=== PATIENT | female | born 1960 | race American Indian/Alaskan Native ===

== ENCOUNTER 2017-01-07 10:35 | Emergency (ER) | payer MEDICARE, OTHER ==
[2017-01-07 10:41] VITALS: BP 118/83; PULSE 62; TEMP 98; O2SAT 99; BMI 35.3
--- NOTE | 2017-01-07 11:57 | ED PDOC ---
HPI: Abdomen Time Seen by Provider: 01/07/17 11:01 Chief Complaint (Nursing): GI Problem Chief Complaint (Provider): GI Problem History Per: Patient History/Exam Limitations: no limitations Onset/Duration Of Symptoms: Days (x1) Current Symptoms Are (Timing): Still Present Additional Complaint(s): Giovana Michel is a 56 year old female with a past medical history of proctitis presenting to the ED for an evaluation of a 1 day history of abdominal pain associated with vomiting and diarrhea starting last night. The patient reports constant, mild cramping and discomfort in her abdomen and multiple episodes of watery, mucus diarrhea with a small amount of blood present starting last night. She vomited two times this morning. She also reports her mother, whom she lives with, is sick with vomiting and diarrhea. The patient denies fever, headache, back pain, or urinary problems. 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 PMD: Non [facility] Provider Past Medical History Reviewed: Historical Data, Nursing Documentation, Vital Signs Vital Signs: Last Vital Signs Temp 98 F 01/07/17 10:40 Pulse 62 01/07/17 10:40 Resp BP 118/83 01/07/17 10:40 Pulse Ox 99 01/07/17 16:40 - Medical History PMH: Anemia, Anxiety, Arthritis, Asthma, Bipolar Disorder, COPD, Depression, Diabetes, Hypercholesterolemia, Hypothyroidism, Osteoporosis, Rheumatoid Arthritis, Seizures Denies: Chronic Kidney Disease Other PMH: proctitis - Family History Family History: States: Unknown Family Hx - Social History Current smoker - smoking cessation education provided: No Ex-Smoker (has not smoked in the last 12 months): No Alcohol: None Drugs: Denies - Immunization History Hx Tetanus Toxoid Vaccination: Yes (November 2014) Hx Influenza Vaccination: Yes Hx Pneumococcal Vaccination: Yes - Home Medications Home Medications: Ambulatory Orders Medication Instructions Recorded Clonazepam. 0.5 mg PO DAILY 01/14/13 Lamotrigine [Lamictal] 100 mg PO BID #10 tab 01/14/13 Lamotrigine. 100 mg PO BID 01/14/13 Levothyroxine. 75 mg PO DAILY 01/14/13 Lexapro. 20 mg PO DAILY 01/14/13 Metformin. 500 mg PO DAILY 01/14/13 Cyclobenzaprine HCl [Flexeril] 1 tab PO TID PRN #15 tab 06/05/14 Ibuprofen [Motrin] 600 mg PO Q6 #20 tab 01/07/17 Ondansetron ODT [Zofran ODT] 4 mg PO Q8 PRN #12 odt 01/07/17 - Allergies Allergies/Adverse Reactions: Allergies Allergy/AdvReac Type Severity Reaction Status Date / Time No Known Allergies Allergy Verified 10/27/14 18:40 Review of Systems ROS Statement: Except As Marked, All Systems Reviewed And Found Negative Constitutional: Negative for: Fever Gastrointestinal: Positive for: Vomiting, Abdominal Pain, Diarrhea Musculoskeletal: Negative for: Back Pain Neurological: Negative for: Headache Physical Exam - Reviewed Nursing Documentation Reviewed: Yes Vital Signs Reviewed: Yes - Physical Exam Appears: Positive for: Well, Non-toxic, No Acute Distress Head Exam: Positive for: ATRAUMATIC, NORMAL INSPECTION, NORMOCEPHALIC Skin: Positive for: Normal Color, Warm, Dry Eye Exam: Positive for: EOMI, Normal appearance, PERRL ENT: Positive for: Normal ENT Inspection Neck: Positive for: Normal, Painless ROM, Supple Cardiovascular/Chest: Positive for: Regular Rate, Rhythm, Chest Non Tender Respiratory: Positive for: Normal Breath Sounds. Negative for: Respiratory Distress Gastrointestinal/Abdominal: Positive for: Normal Exam, Bowel Sounds, Soft, Tenderness (in peripubical area and mild RLQ tenderness ) Back: Positive for: Normal Inspection Extremity: Positive for: Normal ROM. Negative for: Pedal Edema, Deformity Neurologic/Psych: Positive for: Alert, Oriented (x3). Negative for: Motor/ Sensory Deficits - Laboratory Results Result Diagrams: 01/07/17 12:05 01/07/17 12:05 - ECG O2 Sat by Pulse Oximetry: 99 (RA) Pulse Ox Interpretation: Normal - Progress Re-evaluation Time: 16:30 Condition: Re-examined, Improved Medical Decision Making Medical Decision Making: Time: 11:01 Impression: Abdominal pain Differential diagnosis includes but is not limited to colitis, gastroenteritis. Rule out acute appendicitis and diverticulitis Plan: * CT Abd & Pelvis IV Contrast Only * Amylase * COMP Metabolic Panel * Lipase * CBC (With differential) * Bentyl 10 mg PO * Zofran 4 mg IVP * Reevaluation CT Abd & Pelvis IV Contrast: FINDINGS: LOWER THORAX: Bilateral basilar dependent atelectasis identified minimally. LIVER: Unremarkable. No gross lesion or ductal dilatation. GALLBLADDER AND BILE DUCTS: Unremarkable. PANCREAS: Unremarkable. No gross lesion or ductal dilatation. SPLEEN: Unremarkable. ADRENALS: Unremarkable. No mass. KIDNEYS AND URETERS: Unremarkable. No hydronephrosis. No solid mass. VASCULATURE: Unremarkable. No aortic aneurysm. BOWEL: Rare colonic diverticular are appreciated at the sigmoid colon as well as right hemicolon which are nonacute. No obstruction. No gross mural thickening. APPENDIX: Normal appendix. PERITONEUM: Unremarkable. No free fluid. No free air. LYMPH NODES: Unremarkable. No enlarged lymph nodes. BLADDER: Unremarkable. REPRODUCTIVE: fA 1.3 cm nodular density is seen exophytic off the upper right uterine fundus suggestive of small fibroid. The adnexal compartments and uterus are otherwise unremarkable appearing. BONES: No acute . OTHER FINDINGS: None. IMPRESSION: Rare colonic diverticular, nonacute. Possible 1.3 cm round right uterine fundal fibroid. The remainder the examination appears unremarkable. No definite acute abdominal or pelvic findings. Scribe Attestation: Documented by Tiffany Conde, acting as a scribe for Sandy Bautista MD. Provider Scribe Attestation: All medical record entries made by the Scribe were at my direction and personally dictated by me. I have reviewed the chart and agree that the record accurately reflects my personal performance of the history, physical exam, medical decision making, and the department course for this patient. I have also personally directed, reviewed, and agree with the discharge instructions and disposition. Disposition - Clinical Impression Clinical Impression: Colitis, Gastroenteritis - Patient ED Disposition Is Patient to be Admitted: No Doctor Will See Patient In The: Office Counseled Patient/Family Regarding: Studies Performed, Diagnosis, Need For Followup - Disposition Referrals: [facility] [Outside] Taty GRAYSON,MD Lashay [Medical Doctor] - Disposition: Routine/Home Disposition Time: 16:38 Condition: GOOD Additional Instructions: Take your medications as instructed. Follow up with your PCP in 2-3 days. Prescriptions: Ibuprofen [Motrin] 600 mg PO Q6 #20 tab Ondansetron ODT [Zofran ODT] 4 mg PO Q8 PRN #12 odt PRN Reason: Nausea/Vomiting Instructions: Colitis (ED)
[2017-01-07 12:24] LABS: BASO # 0.1 K/uL (0.0-0.2); BASO % 2.6 % (0.0-2.0); EOS # 0.1 K/uL (0.0-0.7); EOS % 1.4 % (0.0-4.0); HEMATOCRIT 35.4 % (34.0-47.0); LYMPH # 1.6 K/uL (1.0-4.3); LYMPH % 35.7 % (20.0-40.0); MEAN CELL VOLUME 61.2 fl (81.0-99.0); MEAN CORPUSCULAR HEMOGLOBIN 19.6 pg (27.0-31.0); MEAN PLATELET VOLUME 8.6 fl (7.2-11.7); MONO # 0.5 K/uL (0.0-0.8); MONO % 10.5 % (0.0-10.0); NEUT # 2.2 K/uL (1.8-7.0); NEUT % 49.8 % (50.0-75.0); NRBC % 0.1 % (0.0-0.0); RED CELL DISTRIBUTION WIDTH 18.2 % (11.5-14.5); WHITE BLOOD COUNT 4.4 K/uL (4.8-10.8)
[2017-01-07 12:25] LABS: ALB/GLOB RATIO 1.1 (1.0-2.1); ALKALINE PHOSPHATASE 191 U/L (38-126); ALT/SGPT 8 U/L (9-52); AMYLASE 127 U/L (30-110); AST/SGOT 51 U/L (14-36); BILIRUBIN,TOTAL 0.8 mg/dl (0.2-1.3); BLOOD UREA NITROGEN 7 mg/dl (7-17); CALCIUM 10.5 mg/dL (8.4-10.2); CARBON DIOXIDE 24 mmol/L (22-30); CHLORIDE 85 mmol/L (98-107); GFR AFRICAN-AMERICAN > 60; GLUCOSE,RANDOM 96 mg/dL (65-105); LIPASE 114 U/L (23-300); SODIUM 121 mmol/l (132-148)
[2017-01-07 12:30] LABS: POTASSIUM 5.4 MMOL/L (3.6-5.0)
[2017-01-07] MEDS ORDERED: Sodium Chloride 0.9% 50 ML IV ONE (14:38)
[2017-01-07] MEDS ORDERED: Iohexol 300 100 ML IJ ONE (14:38)
--- NOTE | 2017-01-07 16:21 | CT ---
PROCEDURE: CT Abdomen and Pelvis with contrast HISTORY: abdominal pain v/d COMPARISON: None. TECHNIQUE: Contrast dose: Omnipaque 300, 95 cc Radiation dose: Total exam DLP = mGy-cm. This CT exam was performed using one or more of the following dose reduction techniques: Automated exposure control, adjustment of the mA and/or kV according to patient size, and/or use of iterative reconstruction technique. FINDINGS: LOWER THORAX: Bilateral basilar dependent atelectasis identified minimally. LIVER: Unremarkable. No gross lesion or ductal dilatation. GALLBLADDER AND BILE DUCTS: Unremarkable. PANCREAS: Unremarkable. No gross lesion or ductal dilatation. SPLEEN: Unremarkable. ADRENALS: Unremarkable. No mass. KIDNEYS AND URETERS: Unremarkable. No hydronephrosis. No solid mass. VASCULATURE: Unremarkable. No aortic aneurysm. BOWEL: Rare colonic diverticular are appreciated at the sigmoid colon as well as right hemicolon which are nonacute. No obstruction. No gross mural thickening. APPENDIX: Normal appendix. PERITONEUM: Unremarkable. No free fluid. No free air. LYMPH NODES: Unremarkable. No enlarged lymph nodes. BLADDER: Unremarkable. REPRODUCTIVE: fA 1.3 cm nodular density is seen exophytic off the upper right uterine fundus suggestive of small fibroid. The adnexal compartments and uterus are otherwise unremarkable appearing. BONES: No acute . OTHER FINDINGS: None. IMPRESSION: Rare colonic diverticular, nonacute. Possible 1.3 cm round right uterine fundal fibroid. The remainder the examination appears unremarkable. No definite acute abdominal or pelvic findings.
== END 2017-01-07 18:18 | disposition home or self-care (01) ==
LOC: H.ER 10:35
DX: K52.9 Noninfective gastroenteritis and colitis, unspecified (principal); E03.9 Hypothyroidism, unspecified; E11.9 Type 2 diabetes mellitus without complications; F31.9 Bipolar disorder, unspecified; F41.9 Anxiety disorder, unspecified; Z79.84 Long term (current) use of oral hypoglycemic drugs; M06.9 Rheumatoid arthritis, unspecified
CPT/HCPCS: 74177; 80053; 81025; 82150; 83690; 85025; 96374; 99283; J2405; Q9967

== ENCOUNTER 2017-08-06 09:36 | Emergency (ER) | payer MEDICARE, OTHER ==
[2017-08-06 09:36] VITALS: BMI 35.3
[2017-08-06 10:29] VITALS: RESP 18
--- NOTE | 2017-08-06 11:33 | ED PDOC ---
HPI: General Adult Time Seen by Provider: 08/06/17 10:30 Chief Complaint (Nursing): GI Problem Chief Complaint (Provider): GI Problem History Per: Patient History/Exam Limitations: no limitations Onset/Duration Of Symptoms: Days (x 4) Additional History Per: Prior Records Additional Complaint(s): Ms. Akhtar is a 56 year old female who presents to the ED complaining of bright red blood from rectum for 4 days. Patient states blood mixed with mucous. Denies abdominal pain, fever, vomiting, diarrhea. Diagnosed with proctitis by Dr. Posey in the past. Patient had rectal bleeding in the past from Hemorrhoids. PMD: Provider TBD Past Medical History Reviewed: Historical Data, Nursing Documentation, Vital Signs Vital Signs: Last Vital Signs Temp 97 F L 08/06/17 10:24 Pulse 66 08/06/17 10:24 Resp 18 08/06/17 10:24 BP 129/72 08/06/17 10:24 Pulse Ox 96 08/06/17 16:49 - Medical History PMH: Anemia, Anxiety, Arthritis, Asthma, Bipolar Disorder, COPD, Depression, Diabetes, Hypercholesterolemia, Hypothyroidism, Osteoporosis, Rheumatoid Arthritis, Seizures Denies: Chronic Kidney Disease - Family History Family History: States: Unknown Family Hx - Immunization History Hx Tetanus Toxoid Vaccination: Yes (November 2014) Hx Influenza Vaccination: Yes Hx Pneumococcal Vaccination: Yes - Home Medications Home Medications: Ambulatory Orders Medication Instructions Recorded Albuterol HFA [Ventolin HFA 90 2 puff IH Q4 PRN 08/06/17 mcg/actuation (8 g)] Benztropine [Cogentin] 1 mg PO Q12 08/06/17 Famotidine [Pepcid] 20 mg PO BID 08/06/17 Fluticasone/Salmeterol 250/50 1 puff IH Q12 08/06/17 [Advair Diskus 250/50] Gentamicin 0.1% [Gentamicin 0.1%] 1 appl TOP DAILY 08/06/17 Haloperidol Decanoate [Haldol 100 mg IM Q28D 08/06/17 Decanoate--long acting] Lamotrigine [Lamictal] 200 mg PO Q12 08/06/17 Levothyroxine [Synthroid] 75 mcg PO DAILY 08/06/17 OXcarbazepine [Trileptal] 300 mg PO Q12 08/06/17 Sertraline [Zoloft] 150 mg PO QAM 08/06/17 Simvastatin [Zocor] 20 mg PO HS 08/06/17 clonazePAM [Klonopin] 0.5 mg PO DAILY 08/06/17 metFORMIN [glucOPHAGE] 500 mg PO BID 08/06/17 - Allergies Allergies/Adverse Reactions: Allergies Allergy/AdvReac Type Severity Reaction Status Date / Time No Known Allergies Allergy Verified 10/27/14 18:40 Review of Systems ROS Statement: Except As Marked, All Systems Reviewed And Found Negative Constitutional: Negative for: Fever Gastrointestinal: Positive for: Other (Rectal bleeding). Negative for: Vomiting , Abdominal Pain, Diarrhea Physical Exam - Reviewed Nursing Documentation Reviewed: Yes Vital Signs Reviewed: Yes - Physical Exam Appears: Positive for: Well, Non-toxic Head Exam: Positive for: ATRAUMATIC, NORMAL INSPECTION, NORMOCEPHALIC Skin: Positive for: Normal Color, Warm, Dry Eye Exam: Positive for: Normal appearance, EOMI, PERRL ENT: Positive for: Normal ENT Inspection Neck: Positive for: Normal Cardiovascular/Chest: Positive for: Regular Rate, Rhythm Respiratory: Positive for: Normal Breath Sounds. Negative for: Respiratory Distress Gastrointestinal/Abdominal: Positive for: Normal Exam Extremity: Positive for: Normal ROM Neurologic/Psych: Positive for: Alert, Oriented (x 3) - Laboratory Results Result Diagrams: 08/06/17 11:45 08/06/17 11:45 - ECG O2 Sat by Pulse Oximetry: 96 Medical Decision Making Medical Decision Making: Time: 11:18 Impression(s): Rectal Bleeding Plan: - Type and Screen - CMP - CBC Time: 15:52 Plan: - Occult Blood, Stool Rectal Exam was performed. Borough Coordinator present: AYAN Murry. Stool was brown. Guaiac was slightly (+). No slightly bleeding. Abdominal soft. Stable for discharged. Patient is ready to go home and will see Dr. Posey. Upon provider evaluation patient is medically stable, and requires no further treatment in the ED at this time. Patient will be discharged. Counseling was provided and all questions were answered regarding diagnosis and need for follow up with Dr. Posey. There is agreement to discharge plan. Return if symptoms persist or worsen. Scribe Attestation: Documented by Victorino Bullock, acting as a scribe for Boom Bishop MD Provider Scribe Attestation: All medical record entries made by the Scribe were at my direction and personally dictated by me. I have reviewed the chart and agree that the record accurately reflects my personal performance of the history, physical exam, medical decision making, and the department course for this patient. I have also personally directed, reviewed, and agree with the discharge instructions and disposition. Disposition - Clinical Impression Clinical Impression: Rectal bleed - Patient ED Disposition Is Patient to be Admitted: No - Disposition Referrals: [facility] [Outside] Lashay Posey MD [Medical Doctor] - Disposition: Routine/Home Disposition Time: 16:47 Condition: IMPROVED Additional Instructions: follow up with Dr Posey within 2 days return to the ED with any worsening or concerning symptoms Instructions: Bloody Stools, Adult (DC) Forms: [employer] (Belarusian)
[2017-08-06 12:12] LABS: BASO # 0.1 K/uL (0.0-0.2); BASO % 1.6 % (0.0-2.0); EOS # 0.1 K/uL (0.0-0.7); EOS % 1.5 % (0.0-4.0); HEMOGLOBIN 11.4 g/dL (12.0-16.0); LYMPH # 1.6 K/uL (1.0-4.3); LYMPH % 37.7 % (20.0-40.0); MEAN CELL VOLUME 62.7 fl (81.0-99.0); MEAN CORPUSCULAR HEMOGLOBIN 20.4 pg (27.0-31.0); MEAN CORPUSCULAR HGB CONC 32.6 g/dL (33.0-37.0); MEAN PLATELET VOLUME 8.9 fl (7.2-11.7); MONO # 0.4 K/uL (0.0-0.8); MONO % 8.9 % (0.0-10.0); NEUT # 2.1 K/uL (1.8-7.0); NEUT % 50.3 % (50.0-75.0); NRBC % 0.1 % (0.0-0.0); RBC 5.56 Mil/uL (3.80-5.20); RED CELL DISTRIBUTION WIDTH 16.6 % (11.5-14.5); WHITE BLOOD COUNT 4.3 K/uL (4.8-10.8)
[2017-08-06 12:17] LABS: ALT/SGPT 36 U/L (9-52); AST/SGOT 35 U/L (14-36); BLOOD UREA NITROGEN 13 mg/dl (7-17); CALCIUM 10.4 mg/dL (8.4-10.2); GFR AFRICAN-AMERICAN > 60; GFR NON-AFRICAN AMERICAN > 60
[2017-08-06 17:13] VITALS: BP 134/72; PULSE 64; TEMP 97.3; O2SAT 97
== END 2017-08-06 17:00 | disposition home or self-care (01) ==
LOC: H.ER 09:36
DX: K62.5 Hemorrhage of anus and rectum (principal); E03.9 Hypothyroidism, unspecified; E11.9 Type 2 diabetes mellitus without complications; E78.00 Pure hypercholesterolemia, unspecified; M06.9 Rheumatoid arthritis, unspecified; Z79.84 Long term (current) use of oral hypoglycemic drugs
CPT/HCPCS: 80053; 85025; 86850; 86900; 99284; G0328

== ENCOUNTER 2017-08-20 11:21 | Day surgery (SDC) | payer MEDICARE ==
[2017-08-20] MEDS ORDERED: Lactated Ringer's 500 ML IV ONE (11:49)
[2017-08-20 12:20] VITALS: TEMP 97; O2SAT 100
[2017-08-20] MEDS ORDERED: Propofol 10 mg/ml Inj (20 ML) ONE (13:10)
[2017-08-20 14:00] VITALS: BP 128/66; PULSE 52; RESP 17
== END 2017-08-20 14:15 | disposition home or self-care (01) ==
LOC: H.ENDO 11:21
PROVIDERS: ATTEND Internal Medicine Gastroenterology
DX: K52.9 Noninfective gastroenteritis and colitis, unspecified (principal); K62.5 Hemorrhage of anus and rectum; J45.909 Unspecified asthma, uncomplicated; J44.9 Chronic obstructive pulmonary disease, unspecified; E11.9 Type 2 diabetes mellitus without complications; E78.5 Hyperlipidemia, unspecified; I10 Essential (primary) hypertension; F31.9 Bipolar disorder, unspecified; K64.8 Other hemorrhoids
CPT/HCPCS: 45380; 82948; 88305; J2001; J2704; J7120

== ENCOUNTER 2017-08-30 15:11 | Emergency (ER) | payer MEDICARE, OTHER ==
[2017-08-30 15:12] VITALS: BMI 35.3
[2017-08-30 15:21] VITALS: BP 154/90; PULSE 54; RESP 16; TEMP 98; O2SAT 99
--- NOTE | 2017-08-30 15:45 | ED PDOC ---
HPI: Trauma/Fall - HPI Time Seen by Provider: 08/30/17 15:23 Chief Complaint (Nursing): Trauma History Per: Patient Onset/Duration Of Symptoms: Mins (30) Injury Occurred (Timing): Just Before Arrival Location Of Injury: Right: Elbow, Face, Hip, Shoulder Severity: Mild Associated Symptoms: denies: Dizziness, LOC Additional Complaint(s): Tripped and fell on sidewalk prior to arrival. Hit right side of face right shoulder, ribs, elbow and hip. No LOC. Past Medical History Vital Signs: Last Vital Signs Temp 98 F 08/30/17 15:18 Pulse 54 L 08/30/17 15:18 Resp 16 08/30/17 15:18 BP 154/90 H 08/30/17 15:18 Pulse Ox 99 08/30/17 15:18 - Medical History PMH: Anemia, Anxiety, Arthritis, Asthma, Bipolar Disorder, COPD, Depression, Diabetes, Diverticulitis, HTN, Hypercholesterolemia, Hypothyroidism, Osteoporosis, Rheumatoid Arthritis, Seizures Denies: Chronic Kidney Disease - Family History Family History: States: Unknown Family Hx - Immunization History Hx Tetanus Toxoid Vaccination: Yes (November 2014) Hx Influenza Vaccination: Yes Hx Pneumococcal Vaccination: Yes - Home Medications Home Medications: Ambulatory Orders Medication Instructions Recorded Albuterol HFA [Ventolin HFA 90 2 puff IH Q4 PRN 08/06/17 mcg/actuation (8 g)] Benztropine [Cogentin] 1 mg PO Q12 08/06/17 Famotidine [Pepcid] 20 mg PO BID 08/06/17 Fluticasone/Salmeterol 250/50 1 puff IH Q12 08/06/17 [Advair Diskus 250/50] Gentamicin 0.1% [Gentamicin 0.1%] 1 appl TOP DAILY 08/06/17 Haloperidol Decanoate [Haldol 100 mg IM Q28D 08/06/17 Decanoate--long acting] Lamotrigine [Lamictal] 200 mg PO Q12 08/06/17 Levothyroxine [Synthroid] 75 mcg PO DAILY 08/06/17 OXcarbazepine [Trileptal] 300 mg PO Q12 08/06/17 Sertraline [Zoloft] 150 mg PO QAM 08/06/17 Simvastatin [Zocor] 20 mg PO HS 08/06/17 clonazePAM [Klonopin] 0.5 mg PO DAILY 08/06/17 metFORMIN [glucOPHAGE] 500 mg PO BID 08/06/17 Naproxen [Naprosyn] 500 mg PO Q12H #20 tab 08/30/17 - Allergies Allergies/Adverse Reactions: Allergies Allergy/AdvReac Type Severity Reaction Status Date / Time No Known Allergies Allergy Verified 08/30/17 15:17 Review of Systems ROS Statement: Except As Marked, All Systems Reviewed And Found Negative Musculoskeletal: Positive for: Neck Pain, Shoulder Pain, Arm Pain, Other (hip pain) Neurological: Negative for: Weakness, Numbness, Headache, Dizziness Physical Exam - Reviewed Nursing Documentation Reviewed: Yes Vital Signs Reviewed: Yes - Physical Exam Appears: Positive for: Non-toxic, No Acute Distress Head Exam: Positive for: NORMAL INSPECTION, NORMOCEPHALIC. Negative for: ATRAUMATIC (Sup abrasion right side of face. No aplpable deformity) Skin: Positive for: Normal Color, Warm, DRY Eye Exam: Positive for: EOMI, Normal appearance, PERRL ENT: Positive for: Normal ENT Inspection Neck: Positive for: Normal, Painless ROM Cardiovascular/Chest: Positive for: Regular Rate, Rhythm. Negative for: Chest Non Tender (Mild tenderness right lateral ribs No ecchymosis) Respiratory: Positive for: CNT, Normal Breath Sounds Gastrointestinal/Abdominal: Positive for: Normal Exam, Soft Back: Positive for: Normal Inspection Extremity: Positive for: Normal ROM, Other (Right shoulder tenderness but no deformity. Right elbow, no deformity or tenderness. Right hip no deformity or tenderness) Neurologic/Psych: Positive for: Alert, Oriented - ECG O2 Sat by Pulse Oximetry: 99 Disposition - Clinical Impression Clinical Impression: Contusion, Head injury - Patient ED Disposition Is Patient to be Admitted: No Counseled Patient/Family Regarding: Studies Performed, Diagnosis, Need For Followup, Rx Given - Disposition Referrals: [facility] [Outside] Disposition: Routine/Home Disposition Time: 16:52 Condition: FAIR Prescriptions: Naproxen [Naprosyn] 500 mg PO Q12H #20 tab Instructions: Minor Head Injury, Contusion (DC) Forms: [employer] (Beninese)
--- NOTE | 2017-08-30 16:43 | RAD ---
PROCEDURE: Radiographs of the Chest and Right Ribs. HISTORY: trauma COMPARISON: None available. TECHNIQUE: Frontal radiograph of the chest and multiple oblique radiographs of the right ribs were obtained. FINDINGS: RIGHT RIBS: No fracture or focal lesion visualized. LUNGS: Clear. PLEURA: No pneumothorax or pleural fluid. CARDIOVASCULAR: Normal sized heart. No pulmonary vascular congestion. OTHER FINDINGS: None. IMPRESSION: Unremarkable radiographs of the chest and right ribs. No right rib fracture.
--- NOTE | 2017-08-30 16:47 | RAD ---
PROCEDURE: Right Hip Radiographs. HISTORY: trauma COMPARISON: None. FINDINGS: BONES: No acute fracture or destructive bony lesion identified including the right hip joint and the pelvic ring. Sacral arcades appear diffusely unremarkable. JOINTS: No dislocation or subluxation of right hip joint is identified. degenerative changes are moderate the bilateral sacroiliac and hip joints, appearing symmetric. Pubic symphysis appears intact. SOFT TISSUES: Normal. OTHER FINDINGS: None. IMPRESSION: No acute fracture or dislocation right hip or the pelvic ring. Degenerative joint changes bilateral hip and sacroiliac joints as described above.
--- NOTE | 2017-08-30 16:49 | RAD ---
PROCEDURE: Radiographs of the Right Shoulder HISTORY: trauma COMPARISON: No prior. FINDINGS: BONES: No acute fracture or destructive bony lesion identified. JOINTS: Glenohumeral and acromioclavicular joints mildly degenerated. SOFT TISSUES: Normal. OTHER FINDINGS: None. IMPRESSION: No fracture, subluxation or dislocation right shoulder joint. The degenerative changes as discussed above.
--- NOTE | 2017-08-30 16:51 | RAD ---
PROCEDURE: Radiographs of the right elbow. HISTORY: trauma COMPARISON: No prior. FINDINGS: BONES: No acute fracture or destructive bony lesion identified. JOINTS: No subluxation or dislocation. Minimal ossification of the insertion of the triceps tendon see the olecranon process. SOFT TISSUES: Normal. JOINT EFFUSION: None. OTHER FINDINGS: None. IMPRESSION: No acute fracture or dislocation identified.
--- NOTE | 2017-08-30 17:01 | CT ---
PROCEDURE: CT HEAD WITHOUT CONTRAST. HISTORY: r/o bleed COMPARISON: None available. TECHNIQUE: Axial computed tomography images were obtained through the head/brain without intravenous contrast. Radiation dose: Total exam DLP = 814.68 mGy-cm. This CT exam was performed using one or more of the following dose reduction techniques: Automated exposure control, adjustment of the mA and/or kV according to patient size, and/or use of iterative reconstruction technique. FINDINGS: HEMORRHAGE: No intracranial hemorrhage. BRAIN: The ventricular sulcal and cisternal spaces are mildly expanding compatible with trace diffuse cerebral atrophy. Good corticomedullary differentiation is appreciated nevertheless, throughout. Posterior fossa contents are unremarkable including the brainstem. Midline brain anatomy is diffusely unremarkable appearing. No suspicious extra-axial fluid collections identified. No parenchymal edema apparent. VENTRICLES: Unremarkable. No hydrocephalus. CALVARIUM: Unremarkable. PARANASAL SINUSES: Unremarkable as visualized. No significant inflammatory changes. MASTOID AIR CELLS: Unremarkable as visualized. No inflammatory changes. OTHER FINDINGS: None. IMPRESSION: Trace diffuse cerebral atrophy with no intracranial hemorrhage, mass effect or cortical edema appreciated. Follow-up MRI or CT are available if clinically warranted.
--- NOTE | 2017-08-30 17:19 | CT ---
PROCEDURE: CT Cervical Spine without contrast HISTORY: trauma COMPARISON: None available. TECHNIQUE: Axial computed tomography images were obtained of the cervical spine without the use of intravenous contrast. Coronal and sagittal reformatted images were created and reviewed. Radiation dose: Total exam DLP = 496.16 mGy-cm. This CT exam was performed using one or more of the following dose reduction techniques: Automated exposure control, adjustment of the mA and/or kV according to patient size, and/or use of iterative reconstruction technique. FINDINGS: VERTEBRAE: Vertebral bodies maintained in height. Straightening of normal lordotic curvature may indicate muscular spasm. Normal alignment maintained. The atlantoaxial articulation and odontoid process are intact. DISCS/SPINAL CANAL/NEURAL FORAMINA: Narrowing of the C5-6 intervertebral disc space associated with degenerative disc disease. Moderate bilateral neural foraminal stenosis at C5-6. No central spinal stenosis. Remaining intervertebral disc spaces are maintained in height. PARASPINAL SOFT TISSUES: Unremarkable. OTHER FINDINGS: None. IMPRESSION: No fracture/ dislocation. Possible muscular spasm. Degenerative disc disease C5-6.
== END 2017-08-30 17:15 | disposition home or self-care (01) ==
LOC: H.ER 15:11
DX: S09.90XA Unspecified injury of head, initial encounter (principal); S00.83XA Contusion of other part of head, initial encounter; W01.198A Fall on same level from slipping, tripping and stumbling with subsequent striking against other object, initial encounter; Y92.480 Sidewalk as the place of occurrence of the external cause

== ENCOUNTER 2017-11-27 14:07 | Emergency (ER) | payer MEDICARE, OTHER ==
[2017-11-27 14:08] VITALS: BMI 35.3
[2017-11-27 14:14] VITALS: BP 144/73; PULSE 67; RESP 16; TEMP 98.7; O2SAT 100
--- NOTE | 2017-11-27 14:28 | ED PDOC ---
HPI: Psych/Substance Abuse Time Seen by Provider: 11/27/17 14:14 Chief Complaint (Nursing): Psychiatric Evaluation Chief Complaint (Provider): crisis eval History Per: Patient, EMS Additional Complaint(s): 57-year-old female presents for evaluation of dizziness that started earlier today. Patient states she had an episode of dizziness that was brief. She states dizziness lasted about 1 minute and then resolved. No associated vision changes or headache, no chest pain, shortness of breath or dyspnea on exertion. Nurse at mental health clinic states that patient has not been acting like her normal self. Patient denies any suicidal or homicidal ideation PMD: unknown Past Medical History Reviewed: Historical Data, Nursing Documentation, Vital Signs Vital Signs: Last Vital Signs Temp 98.7 F 11/27/17 14:09 Pulse 67 11/27/17 14:09 Resp 16 11/27/17 14:09 BP 144/73 11/27/17 14:09 Pulse Ox 100 11/27/17 14:09 - Medical History PMH: Anemia, Anxiety, Arthritis, Asthma, Bipolar Disorder, COPD, Depression, Diabetes, Diverticulitis, HTN, Hypercholesterolemia, Hypothyroidism, Osteoporosis, Rheumatoid Arthritis, Seizures - Surgical History Other surgeries: bunionectomy - Family History Family History: States: No Known Family Hx - Living Arrangements Living Arrangements: With Family - Social History Current smoker - smoking cessation education provided: No Alcohol: None Drugs: Denies - Home Medications Home Medications: Ambulatory Orders Medication Instructions Recorded Albuterol HFA [Ventolin HFA 90 2 puff IH Q4 PRN 08/06/17 mcg/actuation (8 g)] Benztropine [Cogentin] 1 mg PO Q12 08/06/17 Famotidine [Pepcid] 20 mg PO BID 08/06/17 Fluticasone/Salmeterol 250/50 1 puff IH Q12 08/06/17 [Advair Diskus 250/50] Gentamicin 0.1% [Gentamicin 0.1%] 1 appl TOP DAILY 08/06/17 Haloperidol Decanoate [Haldol 100 mg IM Q28D 08/06/17 Decanoate--long acting] Lamotrigine [Lamictal] 200 mg PO Q12 08/06/17 Levothyroxine [Synthroid] 75 mcg PO DAILY 08/06/17 OXcarbazepine [Trileptal] 300 mg PO Q12 08/06/17 Sertraline [Zoloft] 150 mg PO QAM 08/06/17 Simvastatin [Zocor] 20 mg PO HS 08/06/17 clonazePAM [Klonopin] 0.5 mg PO DAILY 08/06/17 metFORMIN [glucOPHAGE] 500 mg PO BID 08/06/17 Naproxen [Naprosyn] 500 mg PO Q12H #20 tab 08/30/17 - Allergies Allergies/Adverse Reactions: Allergies Allergy/AdvReac Type Severity Reaction Status Date / Time No Known Allergies Allergy Verified 11/27/17 14:09 Review of Systems ROS Statement: Except As Marked, All Systems Reviewed And Found Negative Constitutional: Negative for: Fever, Chills Eyes: Negative for: Vision Change Cardiovascular: Negative for: Chest Pain Respiratory: Negative for: Cough Gastrointestinal: Negative for: Nausea, Vomiting Neurological: Positive for: Dizziness. Negative for: Altered Mental Status, Headache Psych: Negative for: Suicidal ideation Physical Exam - Reviewed Nursing Documentation Reviewed: Yes Vital Signs Reviewed: Yes - Physical Exam Appears: Positive for: Well, Non-toxic, No Acute Distress Skin: Positive for: Normal Color. Negative for: Rash Eye Exam: Positive for: Normal appearance, EOMI, PERRL Cardiovascular/Chest: Positive for: Regular Rate, Rhythm Respiratory: Positive for: Normal Breath Sounds. Negative for: Wheezing, Respiratory Distress Extremity: Positive for: Normal ROM Neurologic/Psych: Positive for: Alert, distribution a class lineman II-XII (grossly intact), Oriented. Negative for: Motor/Sensory Deficits, Aphasia, Facial Droop - Laboratory Results Result Diagrams: 11/27/17 16:05 11/27/17 16:05 - ECG Interpretation Of ECG: Normal sinus rhythm 61 bpm, left anterior vesicular block, reviewed by PA and ED attending. O2 Sat by Pulse Oximetry: 100 Pulse Ox Interpretation: Normal - Other Rad CT head X-Ray: Read By Radiologist X-Ray Interpretation: no acute finding Medical Decision Making Medical Decision Makin57 year old female with dizziness Plan: CBC CMP BAL Trop EKG CXR CT head IVF Glucose is 66 - patient was given juice. Repeat fingerstick 96 after juice. Patient was seen by crisis counselor, she does not meet criteria for psychiatric admission. Patient presented initially with dizziness in the setting of hypoglycemia. Patient states dizziness now resolved completely. No further incident has occurred throughout patient's emergency room stay, no further recurrence of dizziness noted. 5:30 PM: Patient is resting comfortably, asking to go home. Transport will be arranged. Disposition - Clinical Impression Clinical Impression: Dizziness, Hypoglycemia - Patient ED Disposition Is Patient to be Admitted: No Counseled Patient/Family Regarding: Studies Performed, Diagnosis, Need For Followup - Disposition Referrals: [facility] [Outside] Disposition: Routine/Home Disposition Time: 17:27 Condition: STABLE Additional Instructions: Follow up with primary care doctor or return to ED at any time if acutely worse. Instructions: Low Blood Sugar in People With Diabetes, Dizziness, Nonvertigo, ( DC) Forms: [employer] (Welsh) Results - Lab Results Lab Results: 11/27/17 11/27/17 16:05 16:05 WBC 6.5 D RBC 5.56 H Hgb 11.4 L Hct 35.7 MCV 64.2 L MCH 20.5 L MCHC 31.9 L RDW 18.5 H Plt Count 311 MPV 8.8 Neut % (Auto) 62.8 Lymph % (Auto) 26.7 Wells % (Auto) 7.2 Eos % (Auto) 1.7 Baso % (Auto) 1.6 Neut # (Auto) 4.1 Lymph # (Auto) 1.7 Wells # (Auto) 0.5 Eos # (Auto) 0.1 Baso # (Auto) 0.1 Sodium 133 Potassium 5.1 H Chloride 99 Carbon Dioxide 24 Anion Gap 15 BUN 10 Creatinine 0.6 L Est GFR ( Amer) > 60 Est GFR (Non-Af Amer) > 60 Random Glucose 75 Calcium 10.1 Total Bilirubin 0.6 AST 32 ALT 21 Alkaline Phosphatase 164 H Troponin I < 0.0120 Total Protein 8.6 H Albumin 4.5 Globulin 4.2 H Albumin/Globulin Ratio 1.1 Alcohol, Quantitative < 10
[2017-11-27] MEDS ORDERED: Sodium Chloride 0.9% 1,000 ML IV STA (14:51)
[2017-11-27 16:15] LABS: BASO # 0.1 K/uL (0.0-0.2); BASO % 1.6 % (0.0-2.0); EOS # 0.1 K/uL (0.0-0.7); EOS % 1.7 % (0.0-4.0); HEMOGLOBIN 11.4 g/dL (12.0-16.0); LYMPH # 1.7 K/uL (1.0-4.3); LYMPH % 26.7 % (20.0-40.0); MEAN CELL VOLUME 64.2 fl (81.0-99.0); MEAN CORPUSCULAR HEMOGLOBIN 20.5 pg (27.0-31.0); MEAN CORPUSCULAR HGB CONC 31.9 g/dL (33.0-37.0); MEAN PLATELET VOLUME 8.8 fl (7.2-11.7); MONO # 0.5 K/uL (0.0-0.8); MONO % 7.2 % (0.0-10.0); NEUT # 4.1 K/uL (1.8-7.0); NEUT % 62.8 % (50.0-75.0); NRBC % 0.1 % (0.0-0.0); RBC 5.56 Mil/uL (3.80-5.20); RED CELL DISTRIBUTION WIDTH 18.5 % (11.5-14.5); WHITE BLOOD COUNT 6.5 K/uL (4.8-10.8)
[2017-11-27 16:30] LABS: ALB/GLOB RATIO 1.1 (1.0-2.1); ALBUMIN 4.5 g/dL (3.5-5.0); ALT/SGPT 21 U/L (9-52); AST/SGOT 32 U/L (14-36); BLOOD UREA NITROGEN 10 mg/dl (7-17); CALCIUM 10.1 mg/dL (8.4-10.2); GFR AFRICAN-AMERICAN > 60; GFR NON-AFRICAN AMERICAN > 60
--- NOTE | 2017-11-27 16:31 | CT ---
Date of service: 11/27/2017 PROCEDURE: CT HEAD WITHOUT CONTRAST. HISTORY: dizziness COMPARISON: 08/30/2017 TECHNIQUE: Axial computed tomography images were obtained through the head/brain without intravenous contrast. Radiation dose: Total exam DLP = 868 mGy-cm. This CT exam was performed using one or more of the following dose reduction techniques: Automated exposure control, adjustment of the mA and/or kV according to patient size, and/or use of iterative reconstruction technique. FINDINGS: HEMORRHAGE: No intracranial hemorrhage. BRAIN: No mass effect or edema. Mild cerebral atrophy. No marked ir gross microvascular ischemic changes. VENTRICLES: Unremarkable. No hydrocephalus. CALVARIUM: Unremarkable. PARANASAL SINUSES: Unremarkable as visualized. No significant inflammatory changes. MASTOID AIR CELLS: Unremarkable as visualized. No inflammatory changes. OTHER FINDINGS: None. IMPRESSION: No hemorrhage or mass effect. No interval pathology appreciated. Mild cerebral atrophy as before.
--- NOTE | 2017-11-27 16:44 | RAD ---
Date of service: 11/27/2017 HISTORY: clearance COMPARISON: No prior. FINDINGS: LUNGS: No active pulmonary disease. PLEURA: No significant pleural effusion identified, no pneumothorax apparent. CARDIOVASCULAR: No radiographic findings to suggest acute or significant cardiovascular disease. OSSEOUS STRUCTURES: No significant abnormalities. VISUALIZED UPPER ABDOMEN: Normal. OTHER FINDINGS: None. IMPRESSION: No active disease. Concordant results with the preliminary interpretation rendered by the emergency department physician procedure.
--- NOTE | 2017-11-28 15:10 | CARD ---
APPROVED REPORT Date of service: 11/27/2017 EKG Measurement Heart [id number] <Conclusion> Normal sinus rhythm Left anterior fascicular block Voltage criteria for left ventricular hypertrophy Abnormal ECG
== END 2017-11-27 16:15 | disposition home or self-care (01) ==
LOC: H.ER 14:07
DX: R42 Dizziness and giddiness (principal); E11.65 Type 2 diabetes mellitus with hyperglycemia; E03.9 Hypothyroidism, unspecified; E78.00 Pure hypercholesterolemia, unspecified; I10 Essential (primary) hypertension; Z79.84 Long term (current) use of oral hypoglycemic drugs
CPT/HCPCS: 70450; 71045; 80053; 82948; 84484; 85025; 93005; 96360; 99282; G0480; J7030

== ENCOUNTER 2018-04-21 10:08 | Emergency (ER) | payer MEDICARE, OTHER ==
[2018-04-21 10:08] VITALS: BMI 35.3
[2018-04-21 10:37] VITALS: RESP 18
--- NOTE | 2018-04-21 11:03 | ED PDOC ---
HPI: Psych/Substance Abuse Time Seen by Provider: 04/21/18 10:36 Chief Complaint (Nursing): Psychiatric Evaluation ED Caveat: Acuity of Condition History Per: Patient, EMS History/Exam Limitations: no limitations Onset/Duration Of Symptoms: Days (1) Current Symptoms Are (Timing): Better Suicide/Self Injury Attempted (Context): None Modifying Factor(s): None Severity: None Associated Symptoms: Paranoia Involuntary Hold By: None Past Medical History Reviewed: Historical Data, Nursing Documentation, Vital Signs Vital Signs: Last Vital Signs Temp 97.8 F 04/21/18 10:28 Pulse 71 04/21/18 10:28 Resp 18 04/21/18 10:28 BP 171/76 H 04/21/18 10:28 Pulse Ox 98 04/21/18 10:28 - Medical History PMH: Anemia, Anxiety, Arthritis, Asthma, Bipolar Disorder, COPD, Depression, Diabetes, Diverticulitis, HTN, Hypercholesterolemia, Hypothyroidism, Osteoporosis, Rheumatoid Arthritis, Seizures Denies: Hepatitis, Chronic Kidney Disease, Sexually Transmitted Disease - Surgical History Surgical History: No Surg Hx - Family History Family History: States: Unknown Family Hx - Immunization History Hx Tetanus Toxoid Vaccination: Yes (November 2014) Hx Influenza Vaccination: Yes Hx Pneumococcal Vaccination: Yes - Home Medications Home Medications: Ambulatory Orders Medication Instructions Recorded Albuterol HFA [Ventolin HFA 90 2 puff IH Q4 PRN 08/06/17 mcg/actuation (8 g)] Benztropine [Cogentin] 1 mg PO Q12 08/06/17 Famotidine [Pepcid] 20 mg PO BID 08/06/17 Fluticasone/Salmeterol 250/50 1 puff IH Q12 08/06/17 [Advair Diskus 250/50] Gentamicin 0.1% 1 appl TOP DAILY 08/06/17 Haloperidol Decanoate [Haldol 100 mg IM Q28D 08/06/17 Decanoate--long acting] Lamotrigine [Lamictal] 200 mg PO Q12 08/06/17 Levothyroxine [Synthroid] 75 mcg PO DAILY 08/06/17 OXcarbazepine [Trileptal] 300 mg PO Q12 08/06/17 Sertraline [Zoloft] 150 mg PO QAM 08/06/17 Simvastatin [Zocor] 20 mg PO HS 08/06/17 clonazePAM [Klonopin] 0.5 mg PO DAILY 08/06/17 metFORMIN [glucOPHAGE] 500 mg PO BID 08/06/17 Naproxen [Naprosyn] 500 mg PO Q12H #20 tab 08/30/17 - Allergies Allergies/Adverse Reactions: Allergies Allergy/AdvReac Type Severity Reaction Status Date / Time No Known Allergies Allergy Verified 11/27/17 14:09 Review of Systems ROS Statement: Except As Marked, All Systems Reviewed And Found Negative Neurological: Positive for: Seizures Psych: Positive for: Psychosis, Suicidal ideation Physical Exam - Reviewed Nursing Documentation Reviewed: Yes Vital Signs Reviewed: Yes - Physical Exam Appears: Positive for: Non-toxic, No Acute Distress Head Exam: Positive for: ATRAUMATIC, NORMAL INSPECTION Skin: Positive for: Warm, Dry Eye Exam: Positive for: EOMI, PERRL ENT: Positive for: Normal ENT Inspection Neck: Positive for: Painless ROM Cardiovascular/Chest: Positive for: Regular Rate, Rhythm Respiratory: Positive for: Normal Breath Sounds. Negative for: Respiratory Distress Gastrointestinal/Abdominal: Positive for: Soft. Negative for: Tenderness Extremity: Positive for: Normal ROM Neurologic/Psych: Positive for: Alert, Oriented - Laboratory Results Result Diagrams: 04/21/18 11:10 04/21/18 11:10 - ECG O2 Sat by Pulse Oximetry: 98 Medical Decision Making Medical Decision Making: IMpression Recurrent seizures, psychosis Diff include acute vs chronic psychosis Plan Labs 1:1 crisis eval trleptal PO lamictal PO reassess Vital signs are stable. Labs reviewed. In my opinion there are no current acute medical conditions that contraindicate the placement of this patient in a psychiatric unit. 1500 Patient is stable for discharge as per Dr Rivas. Disposition - Clinical Impression Clinical Impression: Seizure, Hallucination - Patient ED Disposition Is Patient to be Admitted: No Doctor Will See Patient In The: Office Counseled Patient/Family Regarding: Studies Performed, Diagnosis, Need For Followup - Disposition Referrals: [facility] [Outside] Disposition: Routine/Home Disposition Time: 15:00 Condition: GOOD Additional Instructions: GE NAJERA, thank you for letting us take care of you today. Your provider was Sandy Bautista MD and you were treated for SEIZURE. The emergency medical care you received today was directed at your acute symptoms. If you were prescribed any medication, please fill it and take as directed. It may take several days for your symptoms to resolve. Return to the Emergency Department if your symptoms worsen, do not improve, or if you have any other problems. Please contact your doctor or call one of the physicians/clinics you have been referred to that are listed on the Patient Visit Information form that is included in your discharge packet. Bring any paperwork you were given at discharge with you along with any medications you are taking to your follow up visit. Our treatment cannot replace ongoing medical care by a primary care provider outside of the emergency department. Thank you for allowing the [facility] team to be part of your care today. If you had an X-Ray or CT scan: A Radiologist will review the ED reading if any change in treatment is needed we will contact you. If you had a blood, urine, or wound culture: It will take several days for the results, if any change in treatment is needed we will contact you. If you had an STI test: It will take 48 hours for the results. Please call after 1 week if you have not heard back. Instructions: Schizoaffective Disorder, Seizures
[2018-04-21 11:20] LABS: BASO # 0.1 K/uL (0.0-0.2); BASO % 1.2 % (0.0-2.0); EOS # 0.1 K/uL (0.0-0.7); HEMOGLOBIN 11.6 g/dL (12.0-16.0); LYMPH # 1.4 K/uL (1.0-4.3); LYMPH % 29.3 % (20.0-40.0); MEAN CELL VOLUME 64.8 fl (81.0-99.0); MEAN CORPUSCULAR HEMOGLOBIN 20.4 pg (27.0-31.0); MEAN CORPUSCULAR HGB CONC 31.5 g/dL (33.0-37.0); MEAN PLATELET VOLUME 8.7 fl (7.2-11.7); MONO # 0.4 K/uL (0.0-0.8); MONO % 8.1 % (0.0-10.0); NEUT % 60.4 % (50.0-75.0); NRBC % 0.4 % (0.0-0.0); RBC 5.67 Mil/uL (3.80-5.20); RED CELL DISTRIBUTION WIDTH 17.3 % (11.5-14.5); WHITE BLOOD COUNT 4.9 K/uL (4.8-10.8)
[2018-04-21 11:38] LABS: SQUAMOUS EPITHIAL < 1 /hpf (0-5); URINE BILIRUBIN NEGATIVE (NEGATIVE); URINE BLOOD NEGATIVE (NEGATIVE); URINE CLARITY CLEAR (Clear); URINE COLOR YELLOW (YELLOW); URINE GLUCOSE (UA) NEG (NEGATIVE); URINE LEUKOCYTE ESTERASE NEG Leu/uL (Negative); URINE PROTEIN NEGATIVE (NEGATIVE); URINE UROBILINOGEN 0.2-1.0 mg/dL (0.2-1.0)
[2018-04-21 11:46] LABS: ACETAMINOPHEN < 10.0 ug/ml (10.0-30.0); BLOOD UREA NITROGEN 9 mg/dl (7-17); CALCIUM 10.8 mg/dL (8.4-10.2); GFR NON-AFRICAN AMERICAN > 60; SALICYLATE < 1.0 mg/dl
[2018-04-21 11:52] LABS: ALBUMIN 4.6 g/dL (3.5-5.0); ALT/SGPT 37 U/L (9-52); AST/SGOT 66 U/L (14-36)
[2018-04-21 11:53] LABS: BARBITURATES, UR NEGATIVE (NEGATIVE); BENZODIAZEPINES, UR NEGATIVE (NEGATIVE); OPIATES, UR NEGATIVE (NEGATIVE); PHENCYCLIDINE, UR NEGATIVE (NEGATIVE)
[2018-04-21 14:54] VITALS: BP 125/70; PULSE 65; TEMP 98.2
[2018-04-21 15:34] VITALS: O2SAT 98
== END 2018-04-21 16:10 | disposition home or self-care (01) ==
LOC: H.ER 10:08
DX: G40.909 Epilepsy, unspecified, not intractable, without status epilepticus (principal); R44.3 Hallucinations, unspecified; Z86.59 Personal history of other mental and behavioral disorders; I10 Essential (primary) hypertension; J44.9 Chronic obstructive pulmonary disease, unspecified; M06.9 Rheumatoid arthritis, unspecified; Z79.84 Long term (current) use of oral hypoglycemic drugs; E11.9 Type 2 diabetes mellitus without complications
CPT/HCPCS: 80053; 81003; 82948; 85025; 99282; G0480

== ENCOUNTER 2018-08-27 14:16 | Inpatient (IN) | payer MEDICARE, SELFPAY ==
[2018-08-27 14:16] VITALS: BMI 35.3
[2018-08-27] MEDS ORDERED: Sodium Chloride 0.9% 1,000 ML IV STA (15:31)
[2018-08-27 16:12] LABS: BASO # 0.1 K/uL (0.0-0.2); BASO % 1.1 % (0.0-2.0); EOS % 0.2 % (0.0-4.0); HEMOGLOBIN 12.3 g/dL (12.0-16.0); LYMPH # 1.8 K/uL (1.0-4.3); LYMPH % 30.9 % (20.0-40.0); MEAN CELL VOLUME 63.2 fl (81.0-99.0); MEAN CORPUSCULAR HEMOGLOBIN 20.3 pg (27.0-31.0); MEAN CORPUSCULAR HGB CONC 32.2 g/dL (33.0-37.0); MEAN PLATELET VOLUME 8.6 fl (7.2-11.7); MONO # 0.3 K/uL (0.0-0.8); NEUT # 3.7 K/uL (1.8-7.0); NEUT % 62.8 % (50.0-75.0); NRBC % 0.1 % (0.0-0.0); RBC 6.07 Mil/uL (3.80-5.20); RED CELL DISTRIBUTION WIDTH 17.3 % (11.5-14.5); WHITE BLOOD COUNT 5.9 K/uL (4.8-10.8)
[2018-08-27 16:22] LABS: URINE BILIRUBIN NEGATIVE (NEGATIVE); URINE BLOOD NEGATIVE (NEGATIVE); URINE CLARITY CLEAR (Clear); URINE COLOR YELLOW (YELLOW); URINE GLUCOSE (UA) NEG (NEGATIVE); URINE LEUKOCYTE ESTERASE NEG Leu/uL (Negative); URINE PROTEIN NEGATIVE (NEGATIVE); URINE UROBILINOGEN 0.2-1.0 mg/dL (0.2-1.0)
[2018-08-27 16:23] LABS: BLOOD UREA NITROGEN 10 mg/dl (7-17); CALCIUM 11.3 mg/dL (8.4-10.2); GFR NON-AFRICAN AMERICAN > 60
[2018-08-27 16:28] LABS: URINE AMORPHOUS SEDIMENT FEW /ul (<OCC); URINE BACTERIA FEW (<OCC)
--- NOTE | 2018-08-27 16:44 | ED PDOC ---
HPI: Seizure Time Seen by Provider: 08/27/18 15:18 Chief Complaint (Nursing): Seizure Chief Complaint (Provider): Possible Seizure History Per: Patient History/Exam Limitations: no limitations Recent Seizure Activity Began: Unknown Length Of Seizures (Duration): Unknown Additional Complaint(s): 57 year old female with pmhx of epilepsy presents to the ED for evaluation after a possible seizure. Patient states that the last thing she remembers clearly is going to bed crying last night; she notes she has been more emotional lately because her mother recently . This morning, she woke up and found that she urinated in her sleep, and was very confused. All day, she states she has been confused and unsure of what is going on, associated with a worsening headache a nd forgetfulness. Otherwise, denies nausea, vomiting, and recent medication changes. PMD: none provided Past Medical History Reviewed: Historical Data, Nursing Documentation, Vital Signs Vital Signs: Last Vital Signs Temp 98.4 F 08/27/18 14:23 Pulse 88 08/27/18 14:23 Resp 16 08/27/18 14:23 BP 133/86 08/27/18 14:23 Pulse Ox 98 08/27/18 14:23 - Medical History PMH: Anemia, Anxiety, Arthritis, Asthma, Bipolar Disorder, COPD, Depression, Diabetes, Diverticulitis, HTN, Hypercholesterolemia, Hypothyroidism, Osteoporosis, Rheumatoid Arthritis, Seizures Denies: Hepatitis, HIV, Chronic Kidney Disease, Sexually Transmitted Disease - Surgical History Surgical History: No Surg Hx - Family History Family History: States: Unknown Family Hx - Social History Current smoker - smoking cessation education provided: No Ex-Smoker (has not smoked in the last 12 months): Yes Alcohol: None (stopped in 2002) Drugs: Denies (stopped in college) - Immunization History Hx Tetanus Toxoid Vaccination: Yes (November 2014) Hx Influenza Vaccination: Yes Hx Pneumococcal Vaccination: Yes - Home Medications Home Medications: Ambulatory Orders Medication Instructions Recorded Albuterol HFA [Ventolin HFA 90 2 puff IH Q4 PRN 08/06/17 mcg/actuation (8 g)] Benztropine [Cogentin] 1 mg PO HS 08/06/17 Famotidine [Pepcid] 20 mg PO BID 08/06/17 Fluticasone/Salmeterol 250/50 1 puff IH Q12 08/06/17 [Advair Diskus 250/50] Haloperidol Decanoate [Haldol 100 mg IM Q28D 08/06/17 Decanoate--long acting] Levothyroxine [Synthroid] 75 mcg PO DAILY 08/06/17 OXcarbazepine [Trileptal] 300 mg PO Q8 08/06/17 Sertraline [Zoloft] 200 mg PO QAM 08/06/17 metFORMIN [glucOPHAGE] 500 mg PO BID 08/06/17 Ferrous Sulfate [Feosol] 325 mg PO DAILY 08/27/18 Lamotrigine [Lamictal] 150 mg PO Q12 08/27/18 Meclizine [Meclizine*] 25 mg PO HS PRN 08/27/18 Omeprazole 40 mg PO DAILY 08/27/18 Simvastatin [Zocor] 40 mg PO HS 08/27/18 - Allergies Allergies/Adverse Reactions: Allergies Allergy/AdvReac Type Severity Reaction Status Date / Time No Known Allergies Allergy Verified 08/27/18 14:23 Review of Systems ROS Statement: Except As Marked, All Systems Reviewed And Found Negative Gastrointestinal: Negative for: Nausea, Vomiting Genitourinary Female: Positive for: Other (urinated during sleep) Neurological: Positive for: Confusion, Seizures (possible), Headache (worsening) Physical Exam - Reviewed Nursing Documentation Reviewed: Yes Vital Signs Reviewed: Yes - Physical Exam Appears: Positive for: No Acute Distress Head Exam: Positive for: ATRAUMATIC, NORMAL INSPECTION, NORMOCEPHALIC Skin: Positive for: Normal Color, Warm. Negative for: Rash Eye Exam: Positive for: EOMI, Normal appearance, PERRL ENT: Positive for: Normal ENT Inspection Neck: Positive for: Normal, Painless ROM, Supple Cardiovascular/Chest: Positive for: Regular Rate, Rhythm Respiratory: Positive for: Normal Breath Sounds. Negative for: Respiratory Distress Gastrointestinal/Abdominal: Positive for: Normal Exam, Soft. Negative for: Tenderness Back: Positive for: Normal Inspection Extremity: Positive for: Normal ROM (all extremities) Neurological/Psych: Positive for: Awake, Alert, Normal Tone, Oriented (x3). Negative for: Motor/Sensory Deficits - Laboratory Results Result Diagrams: 08/28/18 10:50 08/28/18 15:23 Lab Results: Urine Color Yellow (YELLOW) 08/27/18 16:06 Urine Clarity Clear (Clear) 08/27/18 16:06 Urine pH 8.0 (5.0-8.0) 08/27/18 16:06 Ur Specific [place] 1.008 (1.003-1.030) 08/27/18 16:06 Urine Protein Negative mg/dL (NEGATIVE) 08/27/18 16:06 Urine Glucose (UA) Neg mg/dL (NEGATIVE) 08/27/18 16:06 Urine Ketones Negative mg/dL (NEGATIVE) 08/27/18 16:06 Urine Blood Negative (NEGATIVE) 08/27/18 16:06 Urine Nitrate Negative (NEGATIVE) 08/27/18 16:06 Urine Bilirubin Negative (NEGATIVE) 08/27/18 16:06 Urine Urobilinogen 0.2-1.0 mg/dL (0.2-1.0) 08/27/18 16:06 Ur Leukocyte Esterase Neg Liv/uL (Negative) 08/27/18 16:06 Urine RBC (Auto) < 1 /hpf (0-3) 08/27/18 16:06 Urine Microscopic WBC 1 /hpf (0-5) 08/27/18 16:06 Amorphous Sediment Few /ul (<OCC) H 08/27/18 16:06 Urine Bacteria Few (<OCC) H 08/27/18 16:06 - ECG O2 Sat by Pulse Oximetry: 98 (RA) Pulse Ox Interpretation: Normal Medical Decision Making Medical Decision Making: Time: 1530 Impression: workup for prolonged post-ictal state vs other cause of AMS Plan: --CT head without contrast --BMP --CPK --CBC with differential --NS IV fluids --Reglan 10mg IVP --Toradol 15mg IVP --Urinalysis --Reevaluation 285 Patient's lab indicative of hyponatremia. Will give bolus 3% normal saline. Patient to be admitted to hospitalist. ----- Scribe Attestation: Documented by Carley Aguero, acting as a scribe for Nimrala Johnson MD. Provider Scribe Attestation: All medical record entries made by the Scribe were at my direction and personally dictated by me. I have reviewed the chart and agree that the record accurately reflects my personal performance of the history, physical exam, medical decision making, and the department course for this patient. I have also personally directed, reviewed, and agree with the discharge instructions and disposition. Disposition - Clinical Impression Clinical Impression: Seizure disorder, Hyponatremia - Disposition Disposition Time: 16:59 Condition: SERIOUS
[2018-08-27] MEDS ORDERED: Sodium Chloride 3% 100 ML IV SCH (17:00)
[2018-08-27] MEDS ORDERED: Sodium Chloride 3% 100 ML IV ONE ×2 (17:30→18:00)
--- NOTE | 2018-08-27 17:42 | CT ---
Date of service: 08/27/2018 PROCEDURE: CT HEAD WITHOUT CONTRAST. HISTORY: AMS, [facility] COMPARISON: Noncontrast head CT performed 11/27/17 TECHNIQUE: Axial computed tomography images were obtained through the head/brain without intravenous contrast. Radiation dose: Total exam DLP = 868.97 mGy-cm. This CT exam was performed using one or more of the following dose reduction techniques: Automated exposure control, adjustment of the mA and/or kV according to patient size, and/or use of iterative reconstruction technique. FINDINGS: HEMORRHAGE: No intracranial hemorrhage. BRAIN: Diffuse atrophy with prominence of the ventricles and sulci noted. No mass effect or edema. The brewster-white matter differentiation appears intact. Please note that MRI with diffusion imaging is more sensitive in the detection of acute ischemic event. VENTRICLES: No hydrocephalus. CALVARIUM: Unremarkable. PARANASAL SINUSES: Unremarkable as visualized. No significant inflammatory changes. MASTOID AIR CELLS: Unremarkable as visualized. No inflammatory changes. OTHER FINDINGS: None. IMPRESSION: No acute intracranial pathology identified. Findings as above.
--- NOTE | 2018-08-27 19:15 | CP.CCUPN ---
CCU Subjective - Physician Review Subjective (Free Text): 57F admitted today after unwitnessed, possible seizure activity occurring at home, overnight, patient woke up in the morning and realized her tongue had been bitten and incontinent of urine. Interim loss of memory recall noted, assoc with dizziness. Denied any headaches, visual loss, nausea/ vomiting, palpitations, LOC. In ER, initial blood work notable for low serum Na= 123, normal glucose , K= 5.8, and normal renal function. CY head was negative for acute pathology. In ER, given bolus on 1 liter saline and 100ml of 3% saline. Repeat BMP pending post-2 hours from initial BMP. Vitals reviewed; Afebrile, BP 160-80, HR 58, RR 18, 100% on RA. ROS: No other pertinent negs or positive on 10+ system review. Other PMSFH: HTN, DM II, Hypothyroidism, Hyperlipidemia. 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 All other Nursing and physician documentation reviewed to date; no new pertinent info noted relevant to current medical problems. EXAM- HEENT: no icterus, pupils equal, 3 mm and reactive, no gaze preference, no nystagmus NECK: no visible JVD, supple, carotids equal upstroke bilat/no bruits CHEST: decreased BS bases, no wheezes audible. HEART: regular, distant, tachy S1S2, no murmur audible, no rubs. ABD: soft, obese, no focal tenderness, BS hypoactive EXT: no edema UEs and LEs, no calf tenderness or palpable cords, distal pulses intact and symmetrical NEURO: no gross focal motor deficits. SKIN: no rashes LABS: WBC= 5.9 HGB= 12.3 PLTs = 347K Na= 123 K= 5.8 Cl= 87 HCO3= 26 BUN/Cr= 10/0.5 BS= 103 Ca= 11.3 CPK= 318 CXR: (my interp)- clear bilat EKG: none available IMPRESSION / MAJOR PROBLEMS NOW: 1. Moderate Hyponatremia, unclear chronicity; r/o Psychogenic polydipsia versus SIADH, versus Psychotropic medication induced. 2. h/o Seizure Disorder 3. Hypercalcemia 4. HTN PLAN: 1. CT head performed, no clear new pathology. H/o Seizures, check AED levels: Lamictal, Trileptal. Consider EEG. 2. Avoid too rapid correction of Serum Na, goal Na now is 125-128. Estd Na deficit is approx. 117-290meq. Await repeat BMP to assess effectiveness of correction. 3. Check TSH, free T4, urine and serum osmos, repeat CPK levels. 4. Suspect polydipsia effects given level of BUN/Cr. If definitive, will need PO fluid restriction. If not, then psychotropic medications will need re- assessment by Psychiatry. 5. Etiology of hypercalcemia unclear - check intact PTH, albumin; if no improvement with fluids, consider Calcitonin. 6. Telemetry monitoring for now; ICU management if she fails to respond to treatment and neuromental status worsens.
[2018-08-27 21:25] LABS: BLOOD UREA NITROGEN 8 mg/dl (7-17); CALCIUM 11.2 mg/dL (8.4-10.2); GFR NON-AFRICAN AMERICAN > 60
[2018-08-27] MEDS ORDERED: Albuterol HFA 90 mcg/actuation (8 g) IH PRN (21:31)
[2018-08-28] MEDS: Levothyroxine 75 MCG TAB PO SCH (05:34)
[2018-08-28] MEDS: Pantoprazole 40 mg EC Tab PO SCH (08:50)
[2018-08-28] MEDS: FLUTICASONE PROPION/SALMETEROL 113-14 IH SCH ×2 (08:51→21:12)
[2018-08-28 11:09] LABS: HEMOGLOBIN 12.1 g/dL (12.0-16.0); MEAN CORPUSCULAR HGB CONC 31.3 g/dL (33.0-37.0); RBC 6.03 Mil/uL (3.80-5.20); RED CELL DISTRIBUTION WIDTH 17.2 % (11.5-14.5); WHITE BLOOD COUNT 5.1 K/uL (4.8-10.8)
--- NOTE | 2018-08-28 12:50 | CP.PCM.CON ---
History of Present Illness - History of Present Illness History of Present Illness: Neurology Consultation Note Consultation Requested by Niles Mckinnon APN Ms. Michel is a 57 y/o female with a PMHx of bipolar disorder, COPD, asthma, HTN, HLD, DM, diverticulitis, hypothyroidism, osteoporosis, rheumatoid arthritis, and seizure (diagnosed in the per pt). Pt was admitted for hyponatremia (Na 123 in the ED) and a possible seizure overnight on 08/27/18. Per pt, she woke up yesterday morning with a bitten tongue and having urinated herself through the night. She also admits to feeling very confused and "in a fog." Pt states that her mother recently and she has undergone an increased amount of emotional stress due to this. She follows up at the [facility] for management of her seizures, though she cannot recall the neurologist name, nor her general provider's name. Per pt she follows up every 3-4 months and was supposed to have a f/u visit in early August, though she missed the appt. She admits to being compliant with her Trileptal and Lamictal, denies skipping doses recently. Her last seizure was within the past month but cannot recall exactly when; she states she was at a "group meeting" when she became unresponsive and woke up surrounded by her acquaintance s. When asked to describe her seizure activity pt states that she "sometimes has body shaking" but also "blacks out." Last EEG was within the past year and done at the [facility], but she cannot tell me exactly when. Today, she is still feeling confused and "in a fog" though better than yesterday. She is noticably forgetful and confused during interview. She denies h/a, dizziness, visual changes, chest pain, palpitations, sob, cough, abd pain, n/v/d, dysuria, paresthesias, fever/chills, recent travel or illness. Upon review of previous imaging, Brain MRI was done in May 2018 (which pt does not recall having) and showed no acute changes; CT Head done in the ED yesterday shows no acute intracranial abnormalities; no EEG of record in the [facility] system. Neurology was called to assist in the management and care of this pt. Review of Systems - Constitutional Constitutional: As Per HPI - EENT Eyes: As Per HPI Ears: As Per HPI Nose/Mouth/Throat: As Per HPI - Breasts Breasts: As Per HPI - Cardiovascular Cardiovascular: As Per HPI - Respiratory Respiratory: As Per HPI - Gastrointestinal Gastrointestinal: As Per HPI - Genitourinary Genitourinary: As Per HPI - Reproductive: Female Reproductive:Female: As Per HPI - Menstruation Menstruation: As Per HPI - Musculoskeletal Musculoskeletal: As Per HPI - Integumentary Integumentary: As Per HPI - Neurological Neurological: As Per HPI - Psychiatric Psychiatric: As Per HPI - Endocrine Endocrine: As Per HPI - Hematologic/Lymphatic Hematologic: As Per HPI Past Patient History - Infectious Disease Hx of Infectious Diseases: None - Past Medical History & Family History Past Medical History?: Yes - Past Social History Smoking Status: Former Smoker Chewing Tobacco Use: No Cigar Use: No Occupation: unemployed Alcohol: None Drugs: Denies - CARDIAC Hx Cardiac Disorders: Yes Hx Hypercholesterolemia: Yes Hx Hypertension: Yes - PULMONARY Hx Respiratory Disorders: Yes Hx Asthma: Yes Hx Chronic Obstructive Pulmonary Disease (COPD): Yes - NEUROLOGICAL Hx Neurological Disorder: Yes Hx Seizures: Yes (diagnosed in ) - HEENT Hx HEENT Problems: No - RENAL Hx Chronic Kidney Disease: No - ENDOCRINE/METABOLIC Hx Endocrine Disorders: Yes (DM) Hx Diabetes Mellitus Type 2: Yes Hx Hypothyroidism: Yes - HEMATOLOGICAL/ONCOLOGICAL Hx Blood Disorders: Yes Hx AIDS: No Hx Anemia: Yes Hx Human Immunodeficiency Virus (HIV): No - INTEGUMENTARY Hx Dermatological Problems: No - MUSCULOSKELETAL/RHEUMATOLOGICAL Hx Musculoskeletal Disorders: Yes Hx Arthritis: Yes Hx Falls: No Hx Osteoporosis: Yes Hx Rheumatoid Arthritis: Yes - GASTROINTESTINAL Hx Gastrointestinal Disorders: Yes Hx Diverticulitis: Yes - GENITOURINARY/GYNECOLOGICAL Hx Genitourinary Disorders: No Hx Sexually Transmitted Disorders: No - PSYCHIATRIC Hx Psychophysiologic Disorder: Yes (depression, Bipolar, anxiety) Hx Substance Use: No - SURGICAL HISTORY Hx Surgeries: Yes Hx Orthopedic Surgery: Yes (BILATERAL FOOT SX) Other/Comment: EXP LAP S/P UTERINE PERFORATION(IUD) - ANESTHESIA Hx Anesthesia: Yes Hx Anesthesia Reactions: Yes (VERY RESISTANT) Meds Allergies/Adverse Reactions: Allergies Allergy/AdvReac Type Severity Reaction Status Date / Time No Known Allergies Allergy Verified 08/27/18 14:23 - Medications Medications: Current Medications Albuterol (Ventolin Hfa 90 Mcg/Actuation (8 G)) 2 puff IH Q4 PRN PRN Reason: Shortness of Breath Atorvastatin Calcium (Lipitor) 20 mg PO HS [facility] Last Admin: 08/27/18 22:23 Dose: 20 mg Benztropine Mesylate (Cogentin) 1 mg PO HS [facility] Last Admin: 08/27/18 22:23 Dose: 1 mg Famotidine (Pepcid) 20 mg PO BID [facility] Last Admin: 08/28/18 08:50 Dose: 20 mg Ferrous Sulfate (Feosol) 325 mg PO DAILY [facility] Last Admin: 08/28/18 08:50 Dose: 325 mg Lamotrigine (Lamictal) 200 mg PO BID [facility] Levothyroxine Sodium (Synthroid) 75 mcg PO DAILY@0630 [facility] Last Admin: 08/28/18 05:34 Dose: 75 mcg Meclizine HCl (Antivert) 25 mg PO HS PRN PRN Reason: Dizziness Metformin HCl (Glucophage) 500 mg PO BID [facility] Last Admin: 08/28/18 08:50 Dose: 500 mg Pantoprazole Sodium (Protonix Ec Tab) 40 mg PO DAILY [facility] Last Admin: 08/28/18 08:50 Dose: 40 mg Physical Exam - Constitutional Appears: Non-toxic, No Acute Distress, Confused Additional comments: pt is calm and cooperative; follows all commands; though has confusion and is forgetful especially when being questioned about prior events - Head Exam Head Exam: ATRAUMATIC, NORMAL INSPECTION, NORMOCEPHALIC - Eye Exam Eye Exam: EOMI, Normal appearance, PERRL. absent: Nystagmus Pupil Exam: NORMAL ACCOMODATION, PERRL - ENT Exam ENT Exam: Mucous Membranes Moist Additional comments: ? bite sherly to left side of tongue w some minor swelling - Neck Exam Neck exam: Positive for: Full Rom, Normal Inspection - Respiratory Exam Respiratory Exam: NORMAL BREATHING PATTERN. absent: Respiratory Distress - Cardiovascular Exam Cardiovascular Exam: REGULAR RHYTHM - GI/Abdominal Exam GI & Abdominal Exam: Soft. absent: Distended, Tenderness - Extremities Exam Extremities exam: Positive for: full ROM, normal inspection. Negative for: calf tenderness, pedal edema - Back Exam Back exam: FULL ROM, NORMAL INSPECTION - Neurological Exam Neurological exam: Alert, Altered, CN II-XII Intact, Normal Gait, Oriented x3, Reflexes Normal Additional comments: AAOx3 though is confused and forgetful about prior events (such as last seizure, last EEG). Speech clear, fluid. FROM to all extremities; no focal motor deficits. No sensory deficits. Coordination intact, gait steady, no dysmetria. No tremors or abnormal movements noted. - Psychiatric Exam Additional comments: confused, forgetful follows all commands cooperative - Skin Skin Exam: Dry, Intact, Normal Color, Warm Results - Vital Signs Recent Vital Signs: Last Vital Signs Temp 97.9 F 08/28/18 11:58 Pulse 81 08/28/18 11:58 Resp 19 08/28/18 11:58 BP 150/79 08/28/18 11:58 Pulse Ox 97 08/28/18 11:58 - Labs Result Diagrams: 08/28/18 10:50 08/27/18 20:24 Labs: Laboratory Results - last 24 hr 08/27/18 08/27/18 08/27/18 16:06 16:06 16:06 WBC 5.9 RBC 6.07 H Hgb 12.3 Hct 38.3 MCV 63.2 L MCH 20.3 L MCHC 32.2 L RDW 17.3 H Plt Count 347 MPV 8.6 Neut % (Auto) 62.8 Lymph % (Auto) 30.9 [place] % (Auto) 5.0 Eos % (Auto) 0.2 Baso % (Auto) 1.1 Neut # (Auto) 3.7 Lymph # (Auto) 1.8 [place] # (Auto) 0.3 Eos # (Auto) 0.0 Baso # (Auto) 0.1 Sodium 123 L Potassium 5.8 H Chloride 87 L Carbon Dioxide 26 Anion Gap 16 BUN 10 Creatinine 0.5 L Est GFR ( Amer) > 60 Est GFR (Non-Af Amer) > 60 POC Glucose (mg/dL) Random Glucose 103 Serum Osmolality Calcium 11.3 H Total Creatine Kinase 318 H Urine Color Yellow Urine Clarity Clear Urine pH 8.0 Ur Specific [place] 1.008 Urine Protein Negative Urine Glucose (UA) Neg Urine Ketones Negative Urine Blood Negative Urine Nitrate Negative Urine Bilirubin Negative Urine Urobilinogen 0.2-1.0 Ur Leukocyte Esterase Neg Urine RBC (Auto) < 1 Urine Microscopic WBC 1 Amorphous Sediment Few H Urine Bacteria Few H 08/27/18 08/27/18 08/27/18 20:24 20:32 21:23 WBC RBC Hgb Hct MCV MCH MCHC RDW Plt Count MPV Neut % (Auto) Lymph % (Auto) [place] % (Auto) Eos % (Auto) Baso % (Auto) Neut # (Auto) Lymph # (Auto) [place] # (Auto) Eos # (Auto) Baso # (Auto) Sodium 129 L Potassium 4.4 Chloride 93 L Carbon Dioxide 27 Anion Gap 13 BUN 8 Creatinine 0.5 L Est GFR ( Amer) > 60 Est GFR (Non-Af Amer) > 60 POC Glucose (mg/dL) 113 H 101 Random Glucose 104 Serum Osmolality Calcium 11.2 H Total Creatine Kinase Urine Color Urine Clarity Urine pH Ur Specific [place] Urine Protein Urine Glucose (UA) Urine Ketones Urine Blood Urine Nitrate Urine Bilirubin Urine Urobilinogen Ur Leukocyte Esterase Urine RBC (Auto) Urine Microscopic WBC Amorphous Sediment Urine Bacteria 08/28/18 08/28/18 08/28/18 05:31 10:50 10:55 WBC 5.1 RBC 6.03 H Hgb 12.1 Hct 38.6 MCV 64.0 L MCH 20.0 L MCHC 31.3 L RDW 17.2 H Plt Count 323 MPV Neut % (Auto) Lymph % (Auto) [place] % (Auto) Eos % (Auto) Baso % (Auto) Neut # (Auto) Lymph # (Auto) [place] # (Auto) Eos # (Auto) Baso # (Auto) Sodium Potassium Chloride Carbon Dioxide Anion Gap BUN Creatinine Est GFR ( Amer) Est GFR (Non-Af Amer) POC Glucose (mg/dL) 102 159 H Random Glucose Serum Osmolality Calcium Total Creatine Kinase Urine Color Urine Clarity Urine pH Ur Specific [place] Urine Protein Urine Glucose (UA) Urine Ketones Urine Blood Urine Nitrate Urine Bilirubin Urine Urobilinogen Ur Leukocyte Esterase Urine RBC (Auto) Urine Microscopic WBC Amorphous Sediment Urine Bacteria 08/28/18 11:10 WBC RBC Hgb Hct MCV MCH MCHC RDW Plt Count MPV Neut % (Auto) Lymph % (Auto) [place] % (Auto) Eos % (Auto) Baso % (Auto) Neut # (Auto) Lymph # (Auto) [place] # (Auto) Eos # (Auto) Baso # (Auto) Sodium Potassium Chloride Carbon Dioxide Anion Gap BUN Creatinine Est GFR ( Amer) Est GFR (Non-Af Amer) POC Glucose (mg/dL) Random Glucose Serum Osmolality 289 Calcium Total Creatine Kinase Urine Color Urine Clarity Urine pH Ur Specific [place] Urine Protein Urine Glucose (UA) Urine Ketones Urine Blood Urine Nitrate Urine Bilirubin Urine Urobilinogen Ur Leukocyte Esterase Urine RBC (Auto) Urine Microscopic WBC Amorphous Sediment Urine Bacteria Assessment & Plan (1) Seizure Assessment and Plan: Imaging reviewed: -CT Head without contrast (08/27/18): No acute intracranial pathology identified. -Continue to monitor and replace Na as needed. -Hold home med Trileptal 2/2 hyponatremia. -Resume Lamictal at 200 mg PO BID. -EEG ordered--f/u with results. -Will discuss need to repeat Brain MRI with Dr. Briones; if necessary at this time I will order it. -Seizure precautions. -Psych and nephro consulted. -Notify neuro team of any acute changes in condition or seizure activity. Sofiya Sanchez DNP, [employer] OPERATOR d/w Dr. Briones Status: Acute - Date & Time Date: 08/28/18 Time: 13:10
--- NOTE | 2018-08-28 15:54 | CP.PCM.CON ---
History of Present Illness - History of Present Illness History of Present Illness: pt is a 57 y/o female with previous psychiatric history of bipolar disorder, and medical history of COPD, asthma, HTN, HLD, DM, diverticulitis, hypothyroidism, osteoporosis, rheumatoid arthritis, and seizure (diagnosed in the per pt). Pt was admitted for hyponatremia pt on review of her medications has jamal on trileptal which is known to cause hyponatremia , pt is also on zoloft 200mg which coukld contribute to hyponatremia pt on evaluation repirted she was diagnosed with bipolar disorder about ten years ago after a suicidal attempt by overdose resulting in hospitalization at [facility] pt has been for past two years following up at [facility], WITH DR BURGOS pt atated that for past few weeks she has been feeling increasingly depressed in the context of loosing her mother and her son being ill pt reported low energy , poor motivation, decreased sleep and decreased appetite denied perceptual disturbances, passive suicidal ideation with out a plan Past Patient History - Infectious Disease Hx of Infectious Diseases: None - Past Medical History & Family History Past Medical History?: Yes - Past Social History Smoking Status: Former Smoker Chewing Tobacco Use: No Cigar Use: No Occupation: unemployed Alcohol: None Drugs: Denies - CARDIAC Hx Cardiac Disorders: Yes Hx Hypercholesterolemia: Yes Hx Hypertension: Yes - PULMONARY Hx Respiratory Disorders: Yes Hx Asthma: Yes Hx Chronic Obstructive Pulmonary Disease (COPD): Yes - NEUROLOGICAL Hx Neurological Disorder: Yes Hx Seizures: Yes (diagnosed in ) - HEENT Hx HEENT Problems: No - RENAL Hx Chronic Kidney Disease: No - ENDOCRINE/METABOLIC Hx Endocrine Disorders: Yes (DM) Hx Diabetes Mellitus Type 2: Yes Hx Hypothyroidism: Yes - HEMATOLOGICAL/ONCOLOGICAL Hx Blood Disorders: Yes Hx AIDS: No Hx Anemia: Yes Hx Human Immunodeficiency Virus (HIV): No - INTEGUMENTARY Hx Dermatological Problems: No - MUSCULOSKELETAL/RHEUMATOLOGICAL Hx Musculoskeletal Disorders: Yes Hx Arthritis: Yes Hx Falls: No Hx Osteoporosis: Yes Hx Rheumatoid Arthritis: Yes - GASTROINTESTINAL Hx Gastrointestinal Disorders: Yes Hx Diverticulitis: Yes - GENITOURINARY/GYNECOLOGICAL Hx Genitourinary Disorders: No Hx Sexually Transmitted Disorders: No - PSYCHIATRIC Hx Psychophysiologic Disorder: Yes (depression, Bipolar, anxiety) Hx Substance Use: No - SURGICAL HISTORY Hx Surgeries: Yes Hx Orthopedic Surgery: Yes (BILATERAL FOOT SX) Other/Comment: EXP LAP S/P UTERINE PERFORATION(IUD) - ANESTHESIA Hx Anesthesia: Yes Hx Anesthesia Reactions: Yes (VERY RESISTANT) Meds Allergies/Adverse Reactions: Allergies Allergy/AdvReac Type Severity Reaction Status Date / Time No Known Allergies Allergy Verified 08/27/18 14:23 - Medications Medications: Current Medications Albuterol (Ventolin Hfa 90 Mcg/Actuation (8 G)) 2 puff IH Q4 PRN PRN Reason: Shortness of Breath Atorvastatin Calcium (Lipitor) 20 mg PO HS [facility] Last Admin: 08/27/18 22:23 Dose: 20 mg Benztropine Mesylate (Cogentin) 1 mg PO HS [facility] Last Admin: 08/27/18 22:23 Dose: 1 mg Famotidine (Pepcid) 20 mg PO BID [facility] Last Admin: 08/28/18 08:50 Dose: 20 mg Ferrous Sulfate (Feosol) 325 mg PO DAILY [facility] Last Admin: 08/28/18 08:50 Dose: 325 mg Lamotrigine (Lamictal) 200 mg PO BID [facility] Levothyroxine Sodium (Synthroid) 75 mcg PO DAILY@0630 [facility] Last Admin: 08/28/18 05:34 Dose: 75 mcg Meclizine HCl (Antivert) 25 mg PO HS PRN PRN Reason: Dizziness Metformin HCl (Glucophage) 500 mg PO BID [facility] Last Admin: 08/28/18 08:50 Dose: 500 mg Pantoprazole Sodium (Protonix Ec Tab) 40 mg PO DAILY [facility] Last Admin: 08/28/18 08:50 Dose: 40 mg Results - Vital Signs Recent Vital Signs: Last Vital Signs Temp 97.9 F 08/28/18 11:58 Pulse 81 08/28/18 11:58 Resp 19 08/28/18 11:58 BP 150/79 08/28/18 11:58 Pulse Ox 97 08/28/18 11:58 - Labs Result Diagrams: 08/28/18 10:50 08/27/18 20:24 Labs: Laboratory Results - last 24 hr 08/27/18 08/27/18 08/27/18 16:06 16:06 16:06 WBC 5.9 RBC 6.07 H Hgb 12.3 Hct 38.3 MCV 63.2 L MCH 20.3 L MCHC 32.2 L RDW 17.3 H Plt Count 347 MPV 8.6 Neut % (Auto) 62.8 Lymph % (Auto) 30.9 [place] % (Auto) 5.0 Eos % (Auto) 0.2 Baso % (Auto) 1.1 Neut # (Auto) 3.7 Lymph # (Auto) 1.8 [place] # (Auto) 0.3 Eos # (Auto) 0.0 Baso # (Auto) 0.1 Sodium 123 L Potassium 5.8 H Chloride 87 L Carbon Dioxide 26 Anion Gap 16 BUN 10 Creatinine 0.5 L Est GFR ( Amer) > 60 Est GFR (Non-Af Amer) > 60 POC Glucose (mg/dL) Random Glucose 103 Serum Osmolality Calcium 11.3 H Total Creatine Kinase 318 H Urine Color Yellow Urine Clarity Clear Urine pH 8.0 Ur Specific [place] 1.008 Urine Protein Negative Urine Glucose (UA) Neg Urine Ketones Negative Urine Blood Negative Urine Nitrate Negative Urine Bilirubin Negative Urine Urobilinogen 0.2-1.0 Ur Leukocyte Esterase Neg Urine RBC (Auto) < 1 Urine Microscopic WBC 1 Amorphous Sediment Few H Urine Bacteria Few H 08/27/18 08/27/18 08/27/18 20:24 20:32 21:23 WBC RBC Hgb Hct MCV MCH MCHC RDW Plt Count MPV Neut % (Auto) Lymph % (Auto) [place] % (Auto) Eos % (Auto) Baso % (Auto) Neut # (Auto) Lymph # (Auto) [place] # (Auto) Eos # (Auto) Baso # (Auto) Sodium 129 L Potassium 4.4 Chloride 93 L Carbon Dioxide 27 Anion Gap 13 BUN 8 Creatinine 0.5 L Est GFR ( Amer) > 60 Est GFR (Non-Af Amer) > 60 POC Glucose (mg/dL) 113 H 101 Random Glucose 104 Serum Osmolality Calcium 11.2 H Total Creatine Kinase Urine Color Urine Clarity Urine pH Ur Specific [place] Urine Protein Urine Glucose (UA) Urine Ketones Urine Blood Urine Nitrate Urine Bilirubin Urine Urobilinogen Ur Leukocyte Esterase Urine RBC (Auto) Urine Microscopic WBC Amorphous Sediment Urine Bacteria 08/28/18 08/28/18 08/28/18 05:31 10:50 10:55 WBC 5.1 RBC 6.03 H Hgb 12.1 Hct 38.6 MCV 64.0 L MCH 20.0 L MCHC 31.3 L RDW 17.2 H Plt Count 323 MPV Neut % (Auto) Lymph % (Auto) [place] % (Auto) Eos % (Auto) Baso % (Auto) Neut # (Auto) Lymph # (Auto) [place] # (Auto) Eos # (Auto) Baso # (Auto) Sodium Potassium Chloride Carbon Dioxide Anion Gap BUN Creatinine Est GFR ( Amer) Est GFR (Non-Af Amer) POC Glucose (mg/dL) 102 159 H Random Glucose Serum Osmolality Calcium Total Creatine Kinase Urine Color Urine Clarity Urine pH Ur Specific [place] Urine Protein Urine Glucose (UA) Urine Ketones Urine Blood Urine Nitrate Urine Bilirubin Urine Urobilinogen Ur Leukocyte Esterase Urine RBC (Auto) Urine Microscopic WBC Amorphous Sediment Urine Bacteria 08/28/18 11:10 WBC RBC Hgb Hct MCV MCH MCHC RDW Plt Count MPV Neut % (Auto) Lymph % (Auto) [place] % (Auto) Eos % (Auto) Baso % (Auto) Neut # (Auto) Lymph # (Auto) [place] # (Auto) Eos # (Auto) Baso # (Auto) Sodium Potassium Chloride Carbon Dioxide Anion Gap BUN Creatinine Est GFR ( Amer) Est GFR (Non-Af Amer) POC Glucose (mg/dL) Random Glucose Serum Osmolality 289 Calcium Total Creatine Kinase Urine Color Urine Clarity Urine pH Ur Specific [place] Urine Protein Urine Glucose (UA) Urine Ketones Urine Blood Urine Nitrate Urine Bilirubin Urine Urobilinogen Ur Leukocyte Esterase Urine RBC (Auto) Urine Microscopic WBC Amorphous Sediment Urine Bacteria Assessment & Plan - Assessment and Plan (Free Text) Assessment: schizoaffective disorder bipolar type Plan: recommend todiscontinue trileptal restart zoloft at a dose of 100mg to avoid withdrawal symptoms pt would benefit from admission to psychiatry upon medical clearance for medication adjustment and treatment of depression
[2018-08-28 16:23] LABS: BLOOD UREA NITROGEN 7 mg/dl (7-17); CALCIUM 11.2 mg/dL (8.4-10.2); GFR NON-AFRICAN AMERICAN > 60
--- NOTE | 2018-08-28 17:04 | MRI ---
Date of service: 08/28/2018 PROCEDURE: MRI BRAIN WITHOUT CONTRAST HISTORY: seizure yesterday; still has AMS COMPARISON: Head CT 08/27/2018 and brain MRI with and without contrast 05/21/2018. TECHNIQUE: Multiplanar, multisequence MR images of the brain were obtained without intravenous contrast enhancement. FINDINGS: HEMORRHAGE: None DWI: No evidence of an acute or early subacute infarction. BRAIN PARENCHYMA: The brewster-white matter differentiation is well preserved. There is no mass effect or definitive edema pattern appreciated including the cortex. There is mild, proportional expansion of the ventriculosulcal and cisternal spaces however in a pattern most compatible with diffuse cerebral atrophy. No suspicious extra-axial fluid collection is identified in the midline brain anatomy appears grossly nonfocal as imaged. VENTRICLES: Unremarkable. No hydrocephalus. CRANIUM: Unremarkable. ORBITS: Grossly unremarkable. PARANASAL SINUSES/MASTOIDS: Clear VASCULAR SYSTEM: Skull base flow voids intact. OTHER FINDINGS: None. IMPRESSION: Stable, age-appropriate limited diffuse cerebral atrophy. No interval suspicious findings. Examination is otherwise unremarkable appearing.
[2018-08-29] MEDS: Levothyroxine 75 MCG TAB PO SCH (05:36)
[2018-08-29] MEDS: FLUTICASONE PROPION/SALMETEROL 113-14 IH SCH (09:33)
[2018-08-29] MEDS: Pantoprazole 40 mg EC Tab PO SCH (09:34)
--- NOTE | 2018-08-29 09:46 | CP.PCM.CON ---
History of Present Illness - History of Present Illness History of Present Illness: This patient who is 57 years of age female I was called to see her for hyponatremia. She was admitted as noted with the medical record possible seizure disorder with hyponatremia and she was given some saline and emergency room and serum sodium appears to be improving the latest test serum sodium 133 Patient has significant past medical history related Hypertension. Bipolar disorder. And seizures? And patient has been taking psychotropic medication No nausea no vomiting no cramping at the present no dysuria Social history not contributory Review of Systems - Constitutional Constitutional: absent: Anorexia, Chills - EENT Eyes: absent: Exophthalmos Ears: absent: As Per HPI - Cardiovascular Cardiovascular: absent: Acrocyanosis, Dyspnea, Edema, Leg Edema - Respiratory Respiratory: absent: Cough, Dyspnea, Hemoptysis - Gastrointestinal Gastrointestinal: absent: Abdominal Pain, Coffee Ground Emesis, Cramping - Genitourinary Genitourinary: absent: Hematuria, Nocturia - Musculoskeletal Musculoskeletal: Abnormal Gait. absent: Back Pain, Muscle Weakness, Numbness - Neurological Neurological: As Per HPI - Psychiatric Psychiatric: As Per HPI, Anxiety - Endocrine Endocrine: Fatigue - Hematologic/Lymphatic Hematologic: absent: Easy Bleeding Past Patient History - Infectious Disease Hx of Infectious Diseases: None - Past Medical History & Family History Past Medical History?: Yes - Past Social History Alcohol: None (stopped in 2002) Drugs: Denies (stopped in college) - CARDIAC Hx Hypercholesterolemia: Yes Hx Hypertension: Yes - PULMONARY Hx Asthma: Yes Hx Chronic Obstructive Pulmonary Disease (COPD): Yes - NEUROLOGICAL Hx Seizures: Yes - HEENT Hx HEENT Problems: No - RENAL Hx Chronic Kidney Disease: No - ENDOCRINE/METABOLIC Hx Hypothyroidism: Yes - HEMATOLOGICAL/ONCOLOGICAL Hx Anemia: Yes Hx Human Immunodeficiency Virus (HIV): No - INTEGUMENTARY Hx Dermatological Problems: No - MUSCULOSKELETAL/RHEUMATOLOGICAL Hx Arthritis: Yes Hx Osteoporosis: Yes Hx Rheumatoid Arthritis: Yes - GASTROINTESTINAL Hx Diverticulitis: Yes - GENITOURINARY/GYNECOLOGICAL Hx Sexually Transmitted Disorders: No - PSYCHIATRIC Hx Anxiety: Yes Hx Bipolar Disorder: Yes Hx Depression: Yes - SURGICAL HISTORY Hx Surgeries: Yes Hx Orthopedic Surgery: Yes (BILATERAL FOOT SX) Other/Comment: EXP LAP S/P UTERINE PERFORATION(IUD) - ANESTHESIA Hx Anesthesia: Yes Hx Anesthesia Reactions: Yes (VERY RESISTANT) Meds Allergies/Adverse Reactions: Allergies Allergy/AdvReac Type Severity Reaction Status Date / Time No Known Allergies Allergy Verified 08/27/18 14:23 - Medications Medications: Current Medications Albuterol (Ventolin Hfa 90 Mcg/Actuation (8 G)) 2 puff IH Q4 PRN PRN Reason: Shortness of Breath Atorvastatin Calcium (Lipitor) 20 mg PO HS [facility] Last Admin: 08/28/18 21:12 Dose: 20 mg Benztropine Mesylate (Cogentin) 1 mg PO HS [facility] Last Admin: 08/28/18 21:12 Dose: 1 mg Famotidine (Pepcid) 20 mg PO BID [facility] Last Admin: 08/29/18 09:34 Dose: 20 mg Ferrous Sulfate (Feosol) 325 mg PO DAILY [facility] Last Admin: 08/29/18 09:34 Dose: 325 mg Lamotrigine (Lamictal) 200 mg PO BID [facility] Last Admin: 08/29/18 09:34 Dose: 200 mg Levothyroxine Sodium (Synthroid) 75 mcg PO DAILY@0630 [facility] Last Admin: 08/29/18 05:36 Dose: 75 mcg Meclizine HCl (Antivert) 25 mg PO HS PRN PRN Reason: Dizziness Metformin HCl (Glucophage) 500 mg PO BID [facility] Last Admin: 08/29/18 09:34 Dose: 500 mg Pantoprazole Sodium (Protonix Ec Tab) 40 mg PO DAILY [facility] Last Admin: 08/29/18 09:34 Dose: 40 mg Sertraline HCl (Zoloft) 100 mg PO DAILY [facility] Last Admin: 08/29/18 09:38 Dose: 100 mg Physical Exam - Constitutional Appears: No Acute Distress - Eye Exam Eye Exam: Conjunctival injection. absent: Nystagmus - ENT Exam ENT Exam: Mucous Membranes Moist - Neck Exam Neck exam: Negative for: Lymphadenopathy - Respiratory Exam Respiratory Exam: NORMAL BREATHING PATTERN. absent: Chest Wall Tenderness, Rales - Cardiovascular Exam Cardiovascular Exam: REGULAR RHYTHM, RRR. absent: Gallop, JVD, Rubs - GI/Abdominal Exam GI & Abdominal Exam: absent: Guarding - Extremities Exam Extremities exam: Negative for: calf tenderness - Back Exam Back exam: absent: CVA tenderness (L), CVA tenderness (R) - Neurological Exam Neurological exam: Alert - Psychiatric Exam Psychiatric exam: Normal Affect Results - Vital Signs Recent Vital Signs: Last Vital Signs Temp 98.0 F 08/29/18 07:51 Pulse 50 L 08/29/18 07:51 Resp 20 08/29/18 07:51 BP 158/88 H 08/29/18 07:51 Pulse Ox 96 08/29/18 07:51 - Labs Result Diagrams: 08/28/18 10:50 08/28/18 15:23 Labs: Laboratory Results - last 24 hr 08/28/18 08/28/18 08/28/18 10:50 10:55 11:10 WBC 5.1 RBC 6.03 H Hgb 12.1 Hct 38.6 MCV 64.0 L MCH 20.0 L MCHC 31.3 L RDW 17.2 H Plt Count 323 Sodium Potassium Chloride Carbon Dioxide Anion Gap BUN Creatinine Est GFR ( Amer) Est GFR (Non-Af Amer) POC Glucose (mg/dL) 159 H Random Glucose Serum Osmolality 289 Calcium 08/28/18 08/28/18 08/28/18 15:23 15:55 21:06 WBC RBC Hgb Hct MCV MCH MCHC RDW Plt Count Sodium 133 Potassium 5.2 H Chloride 98 Carbon Dioxide 23 Anion Gap 17 BUN 7 Creatinine 0.9 Est GFR ( Amer) > 60 Est GFR (Non-Af Amer) > 60 POC Glucose (mg/dL) 118 H 133 H Random Glucose 104 Serum Osmolality Calcium 11.2 H 08/29/18 05:23 WBC RBC Hgb Hct MCV MCH MCHC RDW Plt Count Sodium Potassium Chloride Carbon Dioxide Anion Gap BUN Creatinine Est GFR ( Amer) Est GFR (Non-Af Amer) POC Glucose (mg/dL) 106 Random Glucose Serum Osmolality Calcium Assessment & Plan (1) Hyponatremia Assessment and Plan: Hyponatremia probably related to some of the psychotropic medication she has been taken causing SIADH History of seizure My recommendation Since serum sodium improving the latest 133 last night and to repeat serum sodium now. Fluid restriction about 8000 cc in 24 hours Stat spot urine for sodium osmolarity and creatinine Avoid the free water as part of the fluid restriction Status: Acute (2) Seizure disorder Status: Acute
--- NOTE | 2018-08-29 10:43 | CP.PCM.PN ---
Subjective - Date & Time of Evaluation Date of Evaluation: 08/29/18 Time of Evaluation: 10:40 - Subjective Subjective: Neuro Follow-Up Note: Ms. Michel was evaluated this morning at bedside. Pt states that she is feeling much better today. She no longer feels as though she is forgetful or "in a fog." She offers no complaints today. Denies h/a, dizziness, visual changes, chest pain, palpitations, sob, cough, abd pain, n/v/d, paresthesias, fever/ch ills. Objective - Vital Signs/Intake and Output Vital Signs (last 24 hours): Temp Pulse Resp BP Pulse Ox 98.0 F 50 L 20 158/88 H 96 08/29/18 07:51 08/29/18 07:51 08/29/18 07:51 08/29/18 07:51 08/29/18 07:51 - Medications Medications: Current Medications Albuterol (Ventolin Hfa 90 Mcg/Actuation (8 G)) 2 puff IH Q4 PRN PRN Reason: Shortness of Breath Atorvastatin Calcium (Lipitor) 20 mg PO HS [facility] Last Admin: 08/28/18 21:12 Dose: 20 mg Benztropine Mesylate (Cogentin) 1 mg PO HS [facility] Last Admin: 08/28/18 21:12 Dose: 1 mg Famotidine (Pepcid) 20 mg PO BID [facility] Last Admin: 08/29/18 09:34 Dose: 20 mg Ferrous Sulfate (Feosol) 325 mg PO DAILY [facility] Last Admin: 08/29/18 09:34 Dose: 325 mg Lamotrigine (Lamictal) 200 mg PO BID [facility] Last Admin: 08/29/18 09:34 Dose: 200 mg Levothyroxine Sodium (Synthroid) 75 mcg PO DAILY@0630 [facility] Last Admin: 08/29/18 05:36 Dose: 75 mcg Meclizine HCl (Antivert) 25 mg PO HS PRN PRN Reason: Dizziness Metformin HCl (Glucophage) 500 mg PO BID [facility] Last Admin: 08/29/18 09:34 Dose: 500 mg Pantoprazole Sodium (Protonix Ec Tab) 40 mg PO DAILY [facility] Last Admin: 08/29/18 09:34 Dose: 40 mg Sertraline HCl (Zoloft) 100 mg PO DAILY [facility] Last Admin: 08/29/18 09:38 Dose: 100 mg - Labs Labs: 08/28/18 10:50 08/28/18 15:23 - Constitutional Appears: Well, Non-toxic, No Acute Distress - Head Exam Head Exam: ATRAUMATIC, NORMAL INSPECTION, NORMOCEPHALIC - Eye Exam Eye Exam: EOMI, Normal appearance, PERRL Pupil Exam: NORMAL ACCOMODATION, PERRL - ENT Exam ENT Exam: Mucous Membranes Moist - Neck Exam Neck Exam: Full ROM, Normal Inspection - Respiratory Exam Respiratory Exam: NORMAL BREATHING PATTERN - Extremities Exam Extremities Exam: Full ROM. absent: Calf Tenderness, Pedal Edema - Back Exam Back Exam: Full ROM - Neurological Exam Neurological Exam: Alert, Awake, CN II-XII Intact, Normal Gait, Oriented x3, Reflexes Normal Neuro motor strength exam: Left Upper Extremity: 5, Right Upper Extremity: 5, Left Lower Extremity: 5, Right Lower Extremity: 5 Additional comments: Not confused or forgetful today, able to recall and name objects Orients x3 No focal motor or sensory deficits No tremors or abnormal movements Gait steady - Psychiatric Exam Psychiatric exam: Normal Affect, Normal Mood - Skin Skin Exam: Normal Color Assessment and Plan (1) Seizure Assessment & Plan: Imaging reviewed: -EEG pending. -MRI Brain (08/28/18): Stable, age-appropriate limited diffuse cerebral atrophy. No interval suspicious findings. Examination is otherwise unremarkable appearing. -CT Head without contrast (08/27/18): No acute intracranial pathology identified. -Continue to monitor and replace Na as needed--last Na level 133. -Continue to hold Trileptal 2/2 hyponatremia. -Continue Lamictal 200 mg PO BID. -Continue seizure precautions. -Psych and nephro consulted. -If pt remains stable and EEG shows no seizures, pt can be d/c home with Lamictal 200 mg PO BID and she should be instructed to f/u with her neurologist within 1-2 weeks. If pt is d/c to psych floor for further treatment, also continue Lamictal 200 mg PO BID and reconsult us prn. -Notify neuro team of any acute changes in condition or seizure activity prior to d/c. Sofiya Sanchez, DNP, BEVELLER OPERATOR d/w Dr. Briones Status: Acute
[2018-08-29 11:35] VITALS: O2SAT 98
--- NOTE | 2018-08-29 13:03 | CP.PCM.HP ---
History of Present Illness - History of Present Illness History of Present Illness: 57 year old female with pmhx of epilepsy presented to the ED for evaluation after a possible seizure. Patient stated that the last thing she remembered was going to bed crying the night prior. She admits to being more emotional lately because her mother recently . She woke up the next morning incontinent of urine and felt very confused and with headache. Patient was found to be hyponatremic in ED Patient was seen and examined at bedside today. No complaints offered. Patient states she feels better. Admits to having seizures more frequently. Denies chest pain, sob, palpitations, headache. meds: as per chart allergies: as per chart fam hx: non contributory Present on Admission - Present on Admission Any Indicators Present on Admission: No Review of Systems - Review of Systems All systems: reviewed and no additional remarkable complaints except (mentioned above) Past Patient History - Infectious Disease Hx of Infectious Diseases: None - Past Medical History & Family History Past Medical History?: Yes - Past Social History Alcohol: None (stopped in 2002) Drugs: Denies (stopped in college) - CARDIAC Hx Hypercholesterolemia: Yes Hx Hypertension: Yes - PULMONARY Hx Asthma: Yes Hx Chronic Obstructive Pulmonary Disease (COPD): Yes - NEUROLOGICAL Hx Seizures: Yes - HEENT Hx HEENT Problems: No - RENAL Hx Chronic Kidney Disease: No - ENDOCRINE/METABOLIC Hx Hypothyroidism: Yes - HEMATOLOGICAL/ONCOLOGICAL Hx Anemia: Yes Hx Human Immunodeficiency Virus (HIV): No - INTEGUMENTARY Hx Dermatological Problems: No - MUSCULOSKELETAL/RHEUMATOLOGICAL Hx Arthritis: Yes Hx Osteoporosis: Yes Hx Rheumatoid Arthritis: Yes - GASTROINTESTINAL Hx Diverticulitis: Yes - GENITOURINARY/GYNECOLOGICAL Hx Sexually Transmitted Disorders: No - PSYCHIATRIC Hx Anxiety: Yes Hx Bipolar Disorder: Yes Hx Depression: Yes - SURGICAL HISTORY Hx Surgeries: Yes Hx Orthopedic Surgery: Yes (BILATERAL FOOT SX) Other/Comment: EXP LAP S/P UTERINE PERFORATION(IUD) - ANESTHESIA Hx Anesthesia: Yes Hx Anesthesia Reactions: Yes (VERY RESISTANT) Meds Allergies/Adverse Reactions: Allergies Allergy/AdvReac Type Severity Reaction Status Date / Time No Known Allergies Allergy Verified 08/27/18 14:23 Physical Exam - Constitutional Appears: Non-toxic, No Acute Distress - Head Exam Head Exam: NORMAL INSPECTION - Eye Exam Eye Exam: Normal appearance - Respiratory Exam Respiratory Exam: NORMAL BREATHING PATTERN - Cardiovascular Exam Cardiovascular Exam: +S1, +S2 - GI/Abdominal Exam GI & Abdominal Exam: Soft - Neurological Exam Neurological exam: Alert, Oriented x3 - Psychiatric Exam Psychiatric exam: Normal Affect, Normal Mood - Skin Skin Exam: Normal Color, Warm Results - Vital Signs Recent Vital Signs: Last Vital Signs Temp 97.6 F 08/29/18 11:34 Pulse 69 08/29/18 11:34 Resp 20 08/29/18 11:34 BP 140/86 08/29/18 11:34 Pulse Ox 98 08/29/18 11:34 - Labs Result Diagrams: 08/28/18 10:50 08/28/18 15:23 Labs: Laboratory Results - last 24 hr 08/28/18 08/28/18 08/28/18 15:23 15:55 21:06 Sodium 133 Potassium 5.2 H Chloride 98 Carbon Dioxide 23 Anion Gap 17 BUN 7 Creatinine 0.9 Est GFR ( Amer) > 60 Est GFR (Non-Af Amer) > 60 POC Glucose (mg/dL) 118 H 133 H Random Glucose 104 Calcium 11.2 H Phosphorus 08/29/18 08/29/18 08/29/18 05:23 10:40 10:45 Sodium Potassium Chloride Carbon Dioxide Anion Gap BUN Creatinine Est GFR ( Amer) Est GFR (Non-Af Amer) POC Glucose (mg/dL) 106 187 H Random Glucose Calcium Phosphorus 3.1 Assessment & Plan (1) Hyponatremia Status: Acute (2) Seizure disorder Status: Acute - Assessment and Plan (Free Text) Plan: available diagnostic data reviewed monitor labs monitor vitals review psych meds for possible SE consult psych consult neuro consult nephro cont tx for hyponatremia, improving rest of plan as ordered
--- NOTE | 2018-08-29 13:12 | CP.PCM.PN ---
Subjective - Date & Time of Evaluation Date of Evaluation: 08/29/18 Time of Evaluation: 11:00 - Subjective Subjective: patient seen and examined at bedside. Interim events noted No complaints offered at this time denies cp/sob/fever/chills. available diagnostic data reviewed Review of Systems All systems: reviewed and no additional remarkable complaints except mentioned above Objective Vital Signs Stable - Constitutional Appears: Non-toxic, No Acute Distress Head Exam: NORMAL INSPECTION Eye Exam: Normal appearance Respiratory Exam: NORMAL BREATHING PATTERN Cardiovascular Exam: +S1, +S2 GI & Abdominal Exam: Soft Neurological Exam: Alert, Awake Skin Exam: Normal Color, Warm Assessment and Plan monitor vitals monitor labs Cont meds Cont tx consultants appreciated input rest of plan as ordered Objective - Vital Signs/Intake and Output Vital Signs (last 24 hours): Temp Pulse Resp BP Pulse Ox 97.6 F 69 20 140/86 98 08/29/18 11:34 08/29/18 11:34 08/29/18 11:34 08/29/18 11:34 08/29/18 11:34 - Medications Medications: Current Medications Albuterol (Ventolin Hfa 90 Mcg/Actuation (8 G)) 2 puff IH Q4 PRN PRN Reason: Shortness of Breath Atorvastatin Calcium (Lipitor) 20 mg PO HS [facility] Last Admin: 08/28/18 21:12 Dose: 20 mg Benztropine Mesylate (Cogentin) 1 mg PO HS [facility] Last Admin: 08/28/18 21:12 Dose: 1 mg Famotidine (Pepcid) 20 mg PO BID [facility] Last Admin: 08/29/18 09:34 Dose: 20 mg Ferrous Sulfate (Feosol) 325 mg PO DAILY [facility] Last Admin: 08/29/18 09:34 Dose: 325 mg Lamotrigine (Lamictal) 200 mg PO BID [facility] Last Admin: 08/29/18 09:34 Dose: 200 mg Levothyroxine Sodium (Synthroid) 75 mcg PO DAILY@0630 [facility] Last Admin: 08/29/18 05:36 Dose: 75 mcg Meclizine HCl (Antivert) 25 mg PO HS PRN PRN Reason: Dizziness Metformin HCl (Glucophage) 500 mg PO BID [facility] Last Admin: 08/29/18 09:34 Dose: 500 mg Pantoprazole Sodium (Protonix Ec Tab) 40 mg PO DAILY [facility] Last Admin: 08/29/18 09:34 Dose: 40 mg Sertraline HCl (Zoloft) 100 mg PO DAILY [facility] Last Admin: 08/29/18 09:38 Dose: 100 mg - Labs Labs: 08/28/18 10:50 08/28/18 15:23 Assessment and Plan (1) Hyponatremia Status: Acute (2) Seizure disorder Status: Acute
--- NOTE | 2018-08-29 14:09 | PCM.EEG ---
Electroencephalogram Report - Electroencephalogram Report Procedure Date: 08/29/18 Medication: Lipitor, lamictal, Zoloft Interpretation: Technical Information: This was a 16 -channel EEG, 1-channel EKG routine EEG performed using an [employer] machine. Electrodes were applied using the 10/20 international placement system. Start; 12;26 End; 13;11 Total 45 minuntes. Clinical Information: seizures During resting wakefulness there was a symmetric posterior dominant rhythm at 8.5-9.5 Hz, 30-50 uV, which was reactive to eye opening and closing. Drowsiness (12;37) was associated with fragmentation of the posterior dominant rhythm and with slow roving eye movements. Light sleep (12;43) was recorded and was characterized by central vertex waves, sleep spindles, and bilateral theta slowing. Hyperventilation was not performed. Photic stimulation was performed and there were no changes on the record. Focal abnormality; none ECG was associated with a normal sinus rhythm. Impression: This is a normal awake drowsy and sleep electroencephalogram.
--- NOTE | 2018-08-29 14:15 | CP.PCM.DIS ---
Provider - Provider Date of Admission: 08/27/18 17:11 Attending physician: Chico Gayle MD Consults: 08/27/18 17:08 Critical Care Consult Stat Comment: Consulting Provider: Shant Pepe Consulting Physician: Shant Peep Reason for Consult: hyponatremia 08/27/18 21:39 Psychiatry Consult Routine Comment: Consulting Provider: Kathryn Rivas Consulting Physician: Kathryn Rivas Reason for Consult: hx depression, anxiety, bipolar. Mgmt of psych meds with low sodium 08/28/18 07:00 Neurology Consult Routine Comment: Consulting Provider: Franco Briones Consulting Physician: Franco Briones Reason for Consult: questionable seizure prior to arrival 08/28/18 10:11 Nephrology Consult Routine Comment: Consulting Provider: Norman Goldberg Consulting Physician: Norman Goldberg Reason for Consult: hyponatremia Time Spent in preparation of Discharge (in minutes): 30 Diagnosis - Discharge Diagnosis (1) Hyponatremia Status: Acute (2) Seizure disorder Status: Acute Hospital Course - Lab Results Lab Results: Most Recent Lab Values WBC 5.1 K/uL (4.8-10.8) 08/28/18 10:50 RBC 6.03 Mil/uL (3.80-5.20) H 08/28/18 10:50 Hgb 12.1 g/dL (12.0-16.0) 08/28/18 10:50 Hct 38.6 % (34.0-47.0) 08/28/18 10:50 MCV 64.0 fl (81.0-99.0) L 08/28/18 10:50 MCH 20.0 pg (27.0-31.0) L 08/28/18 10:50 MCHC 31.3 g/dL (33.0-37.0) L 08/28/18 10:50 RDW 17.2 % (11.5-14.5) H 08/28/18 10:50 Plt Count 323 K/uL (130-400) 08/28/18 10:50 MPV 8.6 fl (7.2-11.7) 08/27/18 16:06 Neut % (Auto) 62.8 % (50.0-75.0) 08/27/18 16:06 Lymph % (Auto) 30.9 % (20.0-40.0) 08/27/18 16:06 [place] % (Auto) 5.0 % (0.0-10.0) 08/27/18 16:06 Eos % (Auto) 0.2 % (0.0-4.0) 08/27/18 16:06 Baso % (Auto) 1.1 % (0.0-2.0) 08/27/18 16:06 Neut # (Auto) 3.7 K/uL (1.8-7.0) 08/27/18 16:06 Lymph # (Auto) 1.8 K/uL (1.0-4.3) 08/27/18 16:06 Brooks # (Auto) 0.3 K/uL (0.0-0.8) 08/27/18 16:06 Eos # (Auto) 0.0 K/uL (0.0-0.7) 08/27/18 16:06 Baso # (Auto) 0.1 K/uL (0.0-0.2) 08/27/18 16:06 Sodium 133 mmol/l (132-148) 08/28/18 15:23 Potassium 5.2 MMOL/L (3.6-5.0) H 08/28/18 15:23 Chloride 98 mmol/L (98-107) 08/28/18 15:23 Carbon Dioxide 23 mmol/L (22-30) 08/28/18 15:23 Anion Gap 17 (10-20) 08/28/18 15:23 BUN 7 mg/dl (7-17) 08/28/18 15:23 Creatinine 0.9 mg/dl (0.7-1.2) 08/28/18 15:23 Est GFR ( Amer) > 60 08/28/18 15:23 Est GFR (Non-Af Amer) > 60 08/28/18 15:23 POC Glucose (mg/dL) 187 mg/dL (65-110) H 08/29/18 10:45 Random Glucose 104 mg/dL (65-105) 08/28/18 15:23 Serum Osmolality 289 mosm/kg (272-300) 08/28/18 11:10 Calcium 11.2 mg/dL (8.4-10.2) H 08/28/18 15:23 Phosphorus 3.1 mg/dl (2.5-4.5) 08/29/18 10:40 Total Creatine Kinase 318 U/L (30-135) H 08/27/18 16:06 Urine Color Yellow (YELLOW) 08/27/18 16:06 Urine Clarity Clear (Clear) 08/27/18 16:06 Urine pH 8.0 (5.0-8.0) 08/27/18 16:06 Ur Specific [place] 1.008 (1.003-1.030) 08/27/18 16:06 Urine Protein Negative mg/dL (NEGATIVE) 08/27/18 16:06 Urine Glucose (UA) Neg mg/dL (NEGATIVE) 08/27/18 16:06 Urine Ketones Negative mg/dL (NEGATIVE) 08/27/18 16:06 Urine Blood Negative (NEGATIVE) 08/27/18 16:06 Urine Nitrate Negative (NEGATIVE) 08/27/18 16:06 Urine Bilirubin Negative (NEGATIVE) 08/27/18 16:06 Urine Urobilinogen 0.2-1.0 mg/dL (0.2-1.0) 08/27/18 16:06 Ur Leukocyte Esterase Neg Liv/uL (Negative) 08/27/18 16:06 Urine RBC (Auto) < 1 /hpf (0-3) 08/27/18 16:06 Urine Microscopic WBC 1 /hpf (0-5) 08/27/18 16:06 Amorphous Sediment Few /ul (<OCC) H 08/27/18 16:06 Urine Bacteria Few (<OCC) H 08/27/18 16:06 - Hospital Course Hospital Course: 57 year old female with pmhx of epilepsy presented to the ED for evaluation after a possible seizure. Patient stated that the last thing she remembered was going to bed crying the night prior. She woke up the next morning incontinent of urine and felt very confused and with headache. Patient was found to be hyponatremic in ED Patient was admitted and treated Hyponatremia resolved. Psych, Neuro, Nephro evaluated. Patient medically stable for discharge to psych unit. Discharge Exam - Head Exam Head Exam: NORMAL INSPECTION - Eye Exam Eye Exam: Normal appearance - Respiratory Exam Respiratory Exam: NORMAL BREATHING PATTERN - Cardiovascular Exam Cardiovascular Exam: +S1, +S2 - Neurological Exam Neurological exam: Alert - Skin Skin Exam: Normal Color, Warm Discharge Plan - Follow Up Plan Condition: STABLE Disposition: DISCHARGE TO PSYCH HOSPITAL
[2018-08-29 15:46] VITALS: BP 122/85; PULSE 56; RESP 18; TEMP 98.3
== END 2018-08-29 16:35 | DRG 645 ==
LOC: H.ER 14:16 → H.ERHOLD 17:11 → H.TEL 21:14
PROVIDERS: ADMIT Family Medicine; ATTEND Family Medicine
DX: E22.2 Syndrome of inappropriate secretion of antidiuretic hormone (principal); G40.909 Epilepsy, unspecified, not intractable, without status epilepticus; J44.9 Chronic obstructive pulmonary disease, unspecified; I10 Essential (primary) hypertension; E78.5 Hyperlipidemia, unspecified; E78.00 Pure hypercholesterolemia, unspecified; E03.9 Hypothyroidism, unspecified; M81.0 Age-related osteoporosis without current pathological fracture; M06.9 Rheumatoid arthritis, unspecified; F25.0 Schizoaffective disorder, bipolar type; E11.9 Type 2 diabetes mellitus without complications; Z79.890 Hormone replacement therapy; Z79.899 Other long term (current) drug therapy; Z87.891 Personal history of nicotine dependence; Z91.5 Personal history of self-harm; E83.52 Hypercalcemia

== ENCOUNTER 2018-08-29 16:06 | Inpatient (IN) | payer MEDICARE, SELFPAY ==
[2018-08-29 16:37] VITALS: BMI 32.9
[2018-08-29] MEDS ORDERED: Bismuth Subsalicylate 262 mg/15 ml Sus (240 ml) PO PRN (16:46)
[2018-08-29] MEDS ORDERED: Magnesium Hydroxide Susp 30 ml UD PO PRN (16:46)
[2018-08-29] MEDS ORDERED: Alum-Mag Hydrox-Simethicone Susp (30 mL) PO PRN (16:46)
[2018-08-29] MEDS ORDERED: Albuterol HFA 90 mcg/actuation (8 g) IH PRN (17:21)
--- NOTE | 2018-08-29 18:13 | PCM.BM ---
<Denice Tony - Last Filed: 08/29/18 18:11> Treatment Plan Problems - Problems identified on initial assessmt Depression Date Initiated: 08/29/18 Time Initiated: 18:12 Date resolved: 08/29/18 Assessment reference: NA Status: Active Hopelessness/Heplessness Date Initiated: 08/29/18 Time Initiated: 18:13 Assessment reference: NA Status: Active Social Isolation Date Initiated: 08/29/18 Time Initiated: 18:13 Assessment reference: NA Status: Active Altered Sleep Patterns Date Initiated: 08/29/18 Time Initiated: 18:14 Assessment reference: NA Status: Active Treatment assets and liabiliti Patient Assests: adapts well, cooperative, ADL independent, strong aubrie Patient Liabilities: live alone, dietary restrictions, medical problems - Milieu Protocol Maintain good personal hygiene: daily Encourage regular showers, daily Remind patient to perform daily oral care, daily Assist patient to perform ADL's Conduct patient checks and document Observation sheet: Q15 minutes Maintain personal safety: every shift Educate patient to report safety concerns to staff, every shift Monitor environment for contraband/sharps Medication safety: Monitor for expected outcome, potential side effects: every shift, Assess barriers to learning: every shift, Assess readiness for medication education: every shift <Gail Swanson - Last Filed: 09/01/18 10:41> - Diagnosis (1) Schizoaffective disorder Status: Acute Interventions: Medication management, Individual and group therapy, Psychoeducation 09/01/18 10:42 <Patience Crain - Last Filed: 09/01/18 15:06> Family Contact Family involvement: Patient does not wish Family/SO involvement - Outside Agency [facility] Care involvment: Information-sharing Agency contact name: Evi Solorzano - Clinician Agency contact number: [phone] - Goals for Treatment Patient goals for treatment: Pt will improve overall mood. Pt will report less anxiety and depression. Pt will comply with medications. Pt will be adherent wi [facility] rules and regulations. Pt will attend clinical and activity groups. Pt will develop strategies and coping skills to reduce anxiety. Discharge/Continuing Care - Education Needs Education Needs: Patient Medication, Patient Diagnosis/Disease Process, Patient Coping Skills, Patient Community resources, Patient Activities of Daily Living, Patient Health Practices/Safety, Patient Personal Hygiene/Grooming, Patient Aftercare Safety Plan - Discharge Discharge Criteria: Tolerates medication w/o severe side effects, Free of agitation, Normal sleep pattern, Ability to care for self, Reduction of target symptoms, Other (Reduced anxiety symptoms) Discharge to:: Home - Additional Comments 09/01/18 14:59 Pt seen and discussed in team meeting. Reason for admission reviewed and discussed. Pt reported feeling "ok." Pt reported she was informed that she was being transferred to the inpatient psych from the medical floor due to "because i had to get my medication adjusted." Pt unable to state why she needs her medication adjusted besides "the doctor told me." Pt denied active SI and HI. Pt denied AVH. Pt denied any paranoia. Pt reported grieving the of her mother 3 months ago. Pt reported she resides alone and attends [facility]. Pt requesting to be discharged. 48 hour notice of intent to leave reviewed and discussed with pt. Pt verbalized understanding and agreed to sign notice after treatment team meeting. Pt's medications reviewed by attending psychiatrist. Pt's social and medical issues reviewed and discussed. Tx plan reviewed and discussed. Pt agreeable with discharge for tomorrow, September 02. Pt provided marketing copywriter with verbal and written authorization to contact [facility] clinician, Evi Solorzano ([phone]). SW will continue to follow case. - Treatment Team Participation Discussed with Family/SO: No Was Patient/Family/SO present at Treatment Team Meeting: Yes
[2018-08-29] MEDS ORDERED: Fluticasone-Salmeterol 250-50mcg Diskus IH SCH (21:00)
[2018-08-30] MEDS: Levothyroxine 75 MCG TAB PO SCH (06:25)
[2018-08-30 07:37] LABS: HEMOGLOBIN 12.4 g/dL (12.0-16.0); MEAN CELL VOLUME 63.7 fl (81.0-99.0); MEAN CORPUSCULAR HEMOGLOBIN 20.4 pg (27.0-31.0); MEAN CORPUSCULAR HGB CONC 32.1 g/dL (33.0-37.0); RBC 6.09 Mil/uL (3.80-5.20); RED CELL DISTRIBUTION WIDTH 17.6 % (11.5-14.5)
[2018-08-30 08:22] LABS: LDL CHOLESTEROL 112 mg/dL (0-129)
[2018-08-30 08:36] LABS: ALB/GLOB RATIO 1.2 (1.0-2.1); ALBUMIN 4.7 g/dL (3.5-5.0); ALT/SGPT 30 U/L (9-52); AST/SGOT 28 U/L (14-36); BLOOD UREA NITROGEN 15 mg/dl (7-17); CALCIUM 11.3 mg/dL (8.4-10.2); GFR NON-AFRICAN AMERICAN > 60; HDL CHOLESTEROL 103 MG/DL (30-70)
[2018-08-30] MEDS: FLUTICASONE PROPION/SALMETEROL 113-14 IH SCH ×2 (08:37→21:10)
[2018-08-30] MEDS: Pantoprazole 40 mg EC Tab PO SCH (08:40)
[2018-08-30 08:44] LABS: FERRITIN 25.1 ng/Ml (11.1-264.0)
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
--- NOTE | 2018-08-30 12:21 | PCM.PSYCH ---
Initial Psychiatric Evaluation - Initial Psychiatric Evaluation Chief Complaint (in patient's own words): I am going through a hard time History of Present Illness and Precipitating Events: pt is 57 ys old female with previous diagnosis of schizoaffective disorder admitted due to increased depression with suicidal ideation pt was initially on medical floor for hyponatremia, reported increasingly depressed due to her mother passing away three months ago and her current son illness, reported low energy low motivation, hoplessness , with passive suicidal ideation , reported non command auditory hallucinations Current Medications: Active Medications Generic Name Dose Route Start Last Admin Trade Name Freq PRN Reason Stop Dose Admin Acetaminophen 650 mg 08/29/18 16:46 Tylenol 325mg Tab PO Q4 PRN Pain, moderate (4-7) Al Hydrox/Mg Hydrox/Simethicone 30 ml 08/29/18 16:46 Maalox Plus 30 Ml PO Q4 PRN Dyspepsia Albuterol 2 puff 08/29/18 17:21 Ventolin Hfa 90 Mcg/Actuation (8 G) IH Q4 PRN Shortness of Breath Aripiprazole 2 mg 08/31/18 09:00 Abilify PO DAILY LACIE Atorvastatin Calcium 20 mg 08/29/18 22:00 08/29/18 21:50 Lipitor PO 20 mg HS LACIE Administration Bismuth Subsalicylate 524 mg 08/29/18 16:46 Pepto-Bismol PO Q4 PRN Diarrhea Famotidine 20 mg 08/30/18 09:00 08/30/18 08:40 Pepcid PO 20 mg BID LACIE Administration Ferrous Sulfate 325 mg 08/30/18 09:00 08/30/18 08:38 Feosol PO 325 mg DAILY LACIE Administration Lamotrigine 200 mg 08/29/18 17:15 08/30/18 08:39 Lamictal PO 200 mg BID LACIE Administration Levothyroxine Sodium 75 mcg 08/30/18 06:30 08/30/18 06:25 Synthroid PO 75 mcg DAILY@0630 LACIE Administration Lorazepam 0.5 mg 08/29/18 16:46 Ativan PO 09/12/18 16:47 HS PRN Insomnia Lorazepam 0.5 mg 08/29/18 16:46 Ativan PO 09/12/18 16:47 Q6 PRN Anixety/Agitation Magnesium Hydroxide 30 ml 08/29/18 16:46 Milk Of Magnesia PO HS PRN Constipation Meclizine HCl 25 mg 08/29/18 17:21 Antivert PO HS PRN Dizziness Metformin HCl 500 mg 08/29/18 17:30 08/30/18 08:39 Glucophage PO 500 mg BID LACIE Administration Pantoprazole Sodium 40 mg 08/30/18 09:00 08/30/18 08:40 Protonix Ec Tab PO 40 mg DAILY LACIE Administration Sertraline HCl 100 mg 08/30/18 09:00 08/30/18 08:39 Zoloft PO 100 mg DAILY LACIE Administration Past Psychiatric History - Past Psychiatric History Explanation of prior treatment: reported previous suicidal attempt by overdose resulting in involuntary admission History of ETOH/Drug Use: denied Pertinent Medical Hx (Current Medical&Sleep Prob, Allergies): Allergies Allergy/AdvReac Type Severity Reaction Status Date / Time No Known Allergies Allergy Verified 08/27/18 14:23 Albuterol HFA [Ventolin HFA 90 mcg/actuation (8 g)] 2 puff IH Q4 PRN 08/06/17 Benztropine [Cogentin] 1 mg PO HS 08/06/17 Famotidine [Pepcid] 20 mg PO BID 08/06/17 Fluticasone/Salmeterol 250/50 [Advair Diskus 250/50] 1 puff IH Q12 08/06/17 Levothyroxine [Synthroid] 75 mcg PO DAILY 08/06/17 metFORMIN [glucOPHAGE] 500 mg PO BID 08/06/17 Ferrous Sulfate [Feosol] 325 mg PO DAILY 08/27/18 Meclizine [Meclizine*] 25 mg PO HS PRN 08/27/18 Omeprazole 40 mg PO DAILY 08/27/18 Simvastatin [Zocor] 40 mg PO HS 08/27/18 Sertraline [Zoloft] 100 mg PO DAILY tab 08/29/18 lamoTRIgine [Lamictal] 200 mg PO BID tab 08/29/18 Mental Status Examination - Personal Presentation Personal Presentation: Looks stated age - Affect Affect: Constricted, Depressed - Motor Activity Motor Activity: Psychomotor Retardation - Reliability in Providing Information Reliability in Providing Information: Fair - Speech Speech: Relevant - Mood Mood: Depressed - Formal Thought Process Formal Thought Process: Paranoia, Circumstantial - Hallucinations/Delusions Hallucinations: Auditory - Obsessions/Compulsions Obsessions: No Compulsions: No - Cognitive Functions Orientation: Person, Place Sensorium: Alert Attention/Concentration: Attentive Abstract Thinking: [place] Judgement: Imparied, as evidence by: Poor judgement - Strength & Assets Inventory Strength & Assets Inventory: Life experience - Limitations Additional comments: poor social support DSM 5 DX - DSM 5 DSM 5 Diagnosis: schizoaffective disorder depressed - Recommended/Plan of Treatment Treatment Recommendations and Plan of Treatment: continue with zoloft 100mg start abilify 2mg increase gradually na noted 134 continue to follow up with metabolic pannel cbt , group and supportive therapy
[2018-08-31] MEDS: Levothyroxine 75 MCG TAB PO SCH (05:57)
[2018-08-31] MEDS: FLUTICASONE PROPION/SALMETEROL 113-14 IH SCH ×2 (08:31→21:17)
[2018-08-31] MEDS: Pantoprazole 40 mg EC Tab PO SCH (08:33)
--- NOTE | 2018-08-31 11:23 | PCM.PYCHPN ---
Psychiatric Progress Note - Psychiatric Progress Note Patient seen today, length of contact: pt evaluated discussed with team chart reviewed Patient Chief Complaint: they made me angry yesterday Problems Identified/Issues Discussed: pt evaluated, presenting with angry mood, irritable affect, continues to be guarded and paranoid, needs redirection by staff, discussed with pt starting haldol decanoate pt denied command hallucinations denied current active thoughts of self harm Medical Problems: reported previous suicidal attempt by overdose resulting in involuntary admission DSM 5 Symptoms Update: schizoaffective disorder bipolar type Medication Change: Yes (start haldol decanoate ) Medical Record Reviewed: Yes Mental Status Examination - Cognitive Function Orientation: Person, Place, Situation Attention: WNL Concentration: Poor Association: WNL Fund of Knowledge: Poor Decription of patient's judgement and insights: poor insight and judgment - Mood Mood: Depressed, Anxious - Affect Affect: Constricted, Depressed Additional comments: irritable - Speech Speech: Loud - Formal Thought Process Formal Thought Process: Paranoia, Circumstantial - Suicidal Ideation Suicidal Ideation: No - Homicidal Ideation Homicidal Ideation: No Goal/Treatment Plan - Goal/Treatment Plan Need for Continued Stay: Remain at risks for inpatient hospitalization, Discharge may exacerbated symptoms Progress Toward Problem(s) and Goals/Treatment Plan: start haldol decanoate 100mg IM qmonth , 1ST DOSE TODAY start cogentin 1mg qhs zoloft 100mg Na noted 134 continue to follow up with metabolic panel cbt , group and supportive therapy
[2018-09-01] MEDS: Levothyroxine 75 MCG TAB PO SCH (05:55)
[2018-09-01] MEDS: FLUTICASONE PROPION/SALMETEROL 113-14 IH SCH ×2 (08:34→21:02)
[2018-09-01] MEDS: Pantoprazole 40 mg EC Tab PO SCH (08:36)
--- NOTE | 2018-09-01 10:46 | PCM.PYCHPN ---
Psychiatric Progress Note - Psychiatric Progress Note Patient seen today, length of contact: Pt evaluated, case discussed w/ team, chart reviewed Patient Chief Complaint: "I'm feeling fine." Problems Identified/Issues Discussed: Patient reports that her mood is improved. She denies acute depression/anxiety/AH/VH/paranoia/delusions. She is requesting to be discharged from the hospital. She denies acute SI/HI. Medication Change: No Medical Record Reviewed: Yes Consults ordered or reviewed: Medicine consult Mental Status Examination - Cognitive Function Orientation: Person, Place, Situation, Time Memory: Intact Attention: WNL Concentration: WNL Association: WNL - Mood Mood: Neutral - Affect Affect: Constricted - Speech Speech: Appropriate - Formal Thought Process Formal Thought Process: No Impairment Psychotic Thoughts and Behaviors: Denies acute AH/VH/paranoia - Suicidal Ideation Suicidal Ideation: No - Homicidal Ideation Homicidal Ideation: No Goal/Treatment Plan - Goal/Treatment Plan Need for Continued Stay: Discharge may exacerbated symptoms Progress Toward Problem(s) and Goals/Treatment Plan: Schizoaffective Disorder -Continue current medications -Pt signed a 48 hr letter; will observe for safety clinically overnight with likely discharge tomorrow Estimated Date of D/C: 09/02/18
[2018-09-01 17:48] LABS: FOLATE 7.6 ng/mL
[2018-09-02] MEDS: Levothyroxine 75 MCG TAB PO SCH (05:40)
[2018-09-02 05:45] VITALS: BP 136/82; PULSE 70; RESP 18; TEMP 98.1
[2018-09-02 07:52] LABS: BASO # 0.1 K/uL (0.0-0.2); BASO % 0.9 % (0.0-2.0); EOS # 0.1 K/uL (0.0-0.7); EOS % 1.4 % (0.0-4.0); HEMOGLOBIN 11.6 g/dL (12.0-16.0); LYMPH # 2.2 K/uL (1.0-4.3); MEAN CELL VOLUME 63.9 fl (81.0-99.0); MEAN CORPUSCULAR HEMOGLOBIN 20.3 pg (27.0-31.0); MEAN CORPUSCULAR HGB CONC 31.7 g/dL (33.0-37.0); MEAN PLATELET VOLUME 7.8 fl (7.2-11.7); MONO # 0.5 K/uL (0.0-0.8); MONO % 9.2 % (0.0-10.0); NEUT # 2.5 K/uL (1.8-7.0); NEUT % 47.5 % (50.0-75.0); NRBC % 0.1 % (0.0-0.0); RBC 5.74 Mil/uL (3.80-5.20); RED CELL DISTRIBUTION WIDTH 16.5 % (11.5-14.5); WHITE BLOOD COUNT 5.3 K/uL (4.8-10.8)
[2018-09-02 08:14] LABS: ALB/GLOB RATIO 1.1 (1.0-2.1); ALBUMIN 4.4 g/dL (3.5-5.0); ALT/SGPT 23 U/L (9-52); AST/SGOT 27 U/L (14-36); BLOOD UREA NITROGEN 14 mg/dl (7-17); CALCIUM 10.6 mg/dL (8.4-10.2); GFR NON-AFRICAN AMERICAN > 60
[2018-09-02] MEDS: FLUTICASONE PROPION/SALMETEROL 113-14 IH SCH (08:23)
[2018-09-02] MEDS: Pantoprazole 40 mg EC Tab PO SCH (08:26)
--- NOTE | 2018-09-02 10:09 | PCM.PYCHDC ---
Mental Status Examination - Mental Status Examination Orientation: Person, Place, Situation, Time Memory: Intact Mood: Neutral Affect: Broad Speech: Appropriate Attention: WNL Concentration: WNL Association: WNL Fund of Knowledge: WNL Formal Thought Process: No Impairment Description of patient's judgement and insight: Good I/J Psychotic Thoughts and Behaviors: Denies acute AH/VH/paranoia Suicidal Ideation: No Current Homicidal Ideation?: No Discharge Summary - Discharge Note Reason for Hospitalization: As per initial HPI: pt is 57 ys old female with previous diagnosis of schizoaffective disorder admitted due to increased depression with suicidal ideation pt was initially on medical floor for hyponatremia, reported increasingly depressed due to her mother passing away three months ago and her current son illness, reported low energy low motivation, hoplessness , with passive suicidal ideation , reported non command auditory hallucinations Laboratory Data: Abnormal Lab Results 08/30/18 08/30/18 08/31/18 06:30 10:00 06:30 WBC RBC Hgb Hct MCV MCH MCHC RDW Plt Count MPV Neut % (Auto) Lymph % (Auto) [place] % (Auto) Eos % (Auto) Baso % (Auto) Neut # (Auto) Lymph # (Auto) [place] # (Auto) Eos # (Auto) Baso # (Auto) Sodium Potassium Chloride Carbon Dioxide Anion Gap BUN Creatinine Est GFR ( Amer) Est GFR (Non-Af Amer) POC Glucose (mg/dL) Random Glucose Calcium Phosphorus Magnesium Total Bilirubin AST ALT Alkaline Phosphatase Total Protein Albumin Globulin Albumin/Globulin Ratio 25-OH Vitamin D Total Folate 7.6 Calcium (PTH Intact) 10.9 H PTH w/Ion &Tot Calcium 46 Ur Random Creatinine 114 U Random Total Protein 132 08/31/18 09/02/18 09/02/18 06:30 05:39 07:15 WBC 5.3 RBC 5.74 H Hgb 11.6 L Hct 36.7 MCV 63.9 L MCH 20.3 L MCHC 31.7 L RDW 16.5 H Plt Count 280 MPV 7.8 Neut % (Auto) 47.5 L Lymph % (Auto) 41.0 H [place] % (Auto) 9.2 Eos % (Auto) 1.4 Baso % (Auto) 0.9 Neut # (Auto) 2.5 Lymph # (Auto) 2.2 [place] # (Auto) 0.5 Eos # (Auto) 0.1 Baso # (Auto) 0.1 Sodium Potassium Chloride Carbon Dioxide Anion Gap BUN Creatinine Est GFR ( Amer) Est GFR (Non-Af Amer) POC Glucose (mg/dL) 95 Random Glucose Calcium Phosphorus Magnesium Total Bilirubin AST ALT Alkaline Phosphatase Total Protein Albumin Globulin Albumin/Globulin Ratio 25-OH Vitamin D Total 21 L Folate Calcium (PTH Intact) PTH w/Ion &Tot Calcium Ur Random Creatinine U Random Total Protein 09/02/18 07:15 WBC RBC Hgb Hct MCV MCH MCHC RDW Plt Count MPV Neut % (Auto) Lymph % (Auto) [place] % (Auto) Eos % (Auto) Baso % (Auto) Neut # (Auto) Lymph # (Auto) [place] # (Auto) Eos # (Auto) Baso # (Auto) Sodium 136 Potassium 4.6 Chloride 95 L Carbon Dioxide 32 H Anion Gap 14 BUN 14 Creatinine 0.5 L Est GFR ( Amer) > 60 Est GFR (Non-Af Amer) > 60 POC Glucose (mg/dL) Random Glucose 85 Calcium 10.6 H Phosphorus 3.4 Magnesium 1.6 Total Bilirubin 0.3 AST 27 ALT 23 Alkaline Phosphatase 152 H Total Protein 8.4 H Albumin 4.4 Globulin 4.0 H Albumin/Globulin Ratio 1.1 25-OH Vitamin D Total Folate Calcium (PTH Intact) PTH w/Ion &Tot Calcium Ur Random Creatinine U Random Total Protein Consultations:: List each consultation separately and include: 1. Reason for request. 2. Findings. 3. Follow-up Consultations: Medicine consult Summary of Hospital Course include:: 1. Description of specific treatment plan utilized for patients during their course of treatmen. 2. Summarize the time- course for resolution of acute symptoms and/or regressed behaviors. 3. Describe issues identified and worked on during hospitalization. 4. Describe medication utilized. 5. Describe medical problems identified and treated. 6. Reassessment of suicide risk Summary of Hospital Course: Patient was admitted to the psychiatry unit. Individual and group therapy were provided. Patient was stabilized on Haldol Decanoate 100 mg IM, Zoloft 100 mg PO Daily, Lamictal 200 mg PO BID (Seizure disorder), Cogentin 1 mg PO HS. She denies acute depression/anxiety/AH/VH/SI/HI. She submitted a 48 hr letter requesting to be discharged and will be discharged to home as she does not currently meet criteria for involuntary psychiatric commitment. Patient is psyc hiatrically stable for discharge at this time. Next Haldol Decanoate 100 mg IM due on 11/30/18 - Diagnosis (1) Schizoaffective disorder Current Visit: Yes Status: Chronic - Final Diagnosis (DSM 5) Condition upon Discharge: GOOD DSM 5: Schizoaffective Disorder Disposition: HOME/ ROUTINE Follow-up Treatment Plan: Discharge with outpatient follow-up Prescriptions/Medication Reconciliation: Benztropine [Cogentin] 1 mg PO HS #30 tab Famotidine [Pepcid] 20 mg PO BID #60 tab Lamotrigine [Lamictal] 200 mg PO BID #60 tab Levothyroxine [Synthroid] 75 mcg PO DAILY #30 tab Meclizine [Meclizine*] 25 mg PO HS PRN #30 tab PRN Reason: Dizziness metFORMIN [glucOPHAGE] 500 mg PO BID #60 tab Sertraline [Zoloft] 100 mg PO DAILY #30 tab - Smoking Cessation Smoking Cessation Medication prescribed: No Reason for not providing: Not indicated - Antipsychotic Medications Pt discharged on 2 or more routine antipsychotic medications: No
[2018-09-03 14:57] LABS: ALBUMIN 64.9 %
[2018-09-03 18:37] LABS: ALPHA-1-GLOBULIN (PEP) 0.4 g/dL (0.2-0.3)
== END 2018-09-02 11:05 | disposition home or self-care (01) | DRG 885 ==
LOC: H.STEP 16:38
PROVIDERS: ADMIT Psychiatry & Neurology Psychiatry; ATTEND Psychiatry & Neurology Psychiatry
PROC: GZ51ZZZ Individual Psychotherapy, Behavioral (ICD-10-PCS; 2018-08-29)
PROC: GZ56ZZZ Individual Psychotherapy, Supportive (ICD-10-PCS; 2018-08-29)
PROC: GZHZZZZ Group Psychotherapy (ICD-10-PCS; principal; 2018-09-01)
DX: F25.9 Schizoaffective disorder, unspecified (principal); R45.851 Suicidal ideations; E87.1 Hypo-osmolality and hyponatremia; F25.1 Schizoaffective disorder, depressive type; F25.0 Schizoaffective disorder, bipolar type; F41.9 Anxiety disorder, unspecified; G40.909 Epilepsy, unspecified, not intractable, without status epilepticus; H40.9 Unspecified glaucoma; I10 Essential (primary) hypertension; J44.9 Chronic obstructive pulmonary disease, unspecified; M06.9 Rheumatoid arthritis, unspecified; M81.0 Age-related osteoporosis without current pathological fracture; Z79.899 Other long term (current) drug therapy; Z87.891 Personal history of nicotine dependence; Z91.5 Personal history of self-harm; D64.9 Anemia, unspecified; F12.90 Cannabis use, unspecified, uncomplicated; M19.90 Unspecified osteoarthritis, unspecified site; E03.9 Hypothyroidism, unspecified; E78.00 Pure hypercholesterolemia, unspecified